=== PATIENT | male | born 1965 | race Caucasian/White ===

== ENCOUNTER 2016-02-15 12:26 | Observation (INO) | payer OTHER, SELFPAY ==
[~2016-02-15] VITALS: Ht 180.3 cm; Wt 175.7 kg
[2016-02-15 12:59] LABS: INR 1.19
[2016-02-15 13:04] LABS: BASO % 0.6 % (0.0-1.0); EOS # 0.2 K/mm3 (0.0-0.50); EOS % 3.9 % (0.0-3.0); LARGE UNSTAINED CELL # 0.1 K/mm3 (0.0-0.4); LARGE UNSTAINED CELL % 2.9 % (0.0-4.0); LYMPH # 1.3 K/mm3 (1.5-4.5); LYMPH % 28.8 % (24.0-44.0); MEAN CORPUSCULAR HGB CONC 35.6 g/dl (32.0-36.5); MEAN CORPUSCULAR VOLUME 89.9 fl (80.0-96.0); MONO # 0.3 K/mm3 (0.0-0.8); NEUTROPHILS # 2.5 K/mm3 (1.8-7.7); NEUTROPHILS % 56.9 % (36.0-66.0); RED CELL DISTRIBUTION WIDTH 13.7 % (11.5-14.5); WHITE BLOOD COUNT 4.4 K/mm3 (4.0-10.0)
[2016-02-15 13:22] LABS: PLATELET COUNT, AUTOMATED 89 k/mm3 (150-450)
[2016-02-15 13:27] LABS: ALBUMIN 2.6 GM/DL (3.2-5.2); ALBUMIN/GLOBULIN RATIO 0.96 (1.00-1.93); ALKALINE PHOSPHATASE 85 U/L (45-117); ALT/SGPT 102 U/L (12-78); ANION GAP 7 MEQ/L (8-16); AST/SGOT 121 U/L (15-37); BILIRUBIN,DIRECT 0.3 MG/DL (0.0-0.2); BILIRUBIN,TOTAL 0.7 MG/DL (0.2-1.0); BLOOD UREA NITROGEN 15 MG/DL (7-18); CALCIUM LEVEL 7.8 MG/DL (8.5-10.1); CARBON DIOXIDE LEVEL 29 MEQ/L (21-32); CHLORIDE LEVEL 107 MEQ/L (98-107); CREATININE FOR GFR 1.28 MG/DL (0.70-1.30); GLOMERULAR FILTRATION RATE > 60.0 (>56); GLUCOSE, FASTING 115 MG/DL (70-105); POTASSIUM SERUM 3.4 MEQ/L (3.5-5.1); SODIUM LEVEL 143 MEQ/L (136-145); TOTAL PROTEIN 5.3 GM/DL (6.4-8.2)
[2016-02-15] MEDS ORDERED: ISOVUE-370 76% 100ML VIAL (Q9967) As Ordered ONE (13:52)
[2016-02-15] MEDS ORDERED: ASPI1TAB PO (14:24)
[2016-02-15] MEDS ORDERED: ATOR40TA PO (14:24)
[2016-02-15] MEDS ORDERED: MOBI15TA PO (14:24)
[2016-02-15] MEDS ORDERED: METF500T4 PO (14:24)
[2016-02-15] MEDS ORDERED: HYDR25TAB PO (14:24)
[2016-02-15] MEDS ORDERED: PANT40TA2 PO (14:24)
[2016-02-15] MEDS ORDERED: GABA300C3 PO (14:24)
[2016-02-15] MEDS ORDERED: RIZA5TAB PO (14:24)
[2016-02-15] MEDS ORDERED: SERO1TAB3 PO (14:24)
[2016-02-15] MEDS ORDERED: TIZA4CAP3 PO (14:24)
[2016-02-15] MEDS ORDERED: LISI-542 PO (14:24)
[2016-02-15] MEDS ORDERED: CITA40TA4 PO (14:24)
--- NOTE | 2016-02-15 14:43 | REP ---
Clinical: Abdominal pain. Technique: Axial contrast enhanced images from the lung bases to the pubic symphysis using 100 ml Isovue 370 intravenous contrast material with coronal and sagittal re-formations. Comparison: None. Findings: Liver, spleen, pancreas, gallbladder, bilateral adrenal glands and kidneys are normal. The enteric system is without obstruction or acute inflammatory process and a normal terminal ileum and appendix are identified in the right lower quadrant. 1 cm fat containing periumbilical hernia noted. Few colonic diverticula noted without acute diverticulitis. Pelvis demonstrates normal bladder and age appropriate prostate/seminal vesicles. No pelvic fluid or ascites. No intra-abdominal or retroperitoneal adenopathy. No free air. Vasculature is normal and without aneurysm or dissection. Musculoskeletal structures demonstrate degenerative changes without focal osseous abnormality. Lung bases clear. Impression: No acute intra-abdominal or pelvic pathology appreciated. Scattered colonic diverticula without acute diverticulitis. 1 cm fat containing periumbilical hernia. Signed by Dayne Paris MD 02/15/2016 02:35 P
[2016-02-15] MEDS ORDERED: tiZANidine 4 MG TAB PO PRN (18:45)
[2016-02-15] MEDS ORDERED: RIZATRIPTAN BENZOATE 10 MG TAB PO PRN (18:45)
[2016-02-15] MEDS ORDERED: ACETAMINOPHEN TAB 650MG DOSE (2X325MG) PO PRN (18:45)
[2016-02-15] MEDS ORDERED: BISACODYL 5 MG TAB PO PRN (18:45)
[2016-02-15 18:55] LABS: MAGNESIUM LEVEL 1.8 MG/DL (1.8-2.4)
--- NOTE | 2016-02-15 20:02 | ECGEPIP ---
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
--- NOTE | 2016-02-15 21:44 | HPE ---
DATE OF ADMISSION: 02/12/2016 HOSPITALIST ATTENDING: Dr. Nabila Garcia. CHIEF COMPLAINT: Dizziness, lightheadedness. HISTORY OF PRESENT ILLNESS: 50-year-old male with history of diabetes, depression, hypercholesterolemia, morbid obesity, hypertension, chronic back pain, left open reduction internal fixation (ORIF) of the ankle, vasectomy presents to the emergency room with two day history of worsening dizziness, lightheadedness. Patient was seen at scheduled primary care appointment where he received steroid injections to his knees for severe osteoarthritis and was found to have systolic pressure of 70, diastolic of 38. Glucose level was 91. Patient was sent emergently to the emergency room, was found to be orthostatic. He had been on chronic hydrochlorothiazide and lisinopril, had been compliant with his medications. He otherwise denies any chest pain, pressure or tightness. He has chronic shortness of breath from asthma. Patient has had recurrent falls times two and the legs felt like it was giving out. He denies any nausea, vomiting, abdominal pain, bright blood red per rectum, black tarry stools, chest pain, pressure, tightness, fever, chills, rhinorrhea. He has chronic back pain which is unchanged. In the emergency room he was found to be orthostatic. Hospitalist service was called for orthostatic hypotension. Electrocardiogram also showed prolonged QT. Telemetry showed no PVCs. PAST MEDICAL HISTORY: 1. Chronic back pain. 2. Depression. 3. Diabetes. 4. Hypertension. 5. Hypercholesterolemia. 6. Morbid obesity. PAST SURGICAL HISTORY: 1. Severe osteoarthritis. 2. Disc bulges. 3. Vasectomy. 4. Left ankle open reduction internal fixation (ORIF). ALLERGIES: No known drug allergies. HOME MEDICATIONS: - gabapentin 300 mg three times a day - [place] 7.5/325 one tablet every 6 hours - Mobic 15 mg daily - tizanidine 4 mg two tablets every 8 hours - Seroquel 25 mg daily - rizatriptan 5 mg as needed - metformin 500 mg daily - hydrochlorothiazide 25 daily - citalopram 40 mg daily - Lipitor 40 mg daily - lisinopril 5 mg daily - Protonix 40 mg daily - aspirin 81 mg daily SOCIAL HISTORY: Patient is applying for disability due to back injury years ago. Previous smoker, quit 31 years ago. Two packs a day for about 4 years. No alcohol use. No recreational drug use. FAMILY HISTORY: Mother age 75 from brain cancer. Father decreased age 76 to myocardial infarction and aneurysm. REVIEW OF SYSTEMS: 12-point system negative except for positive findings on history of present illness. PHYSICAL EXAMINATION: Blood pressure 93/54, pulse 56, respiratory 20, temperature 97.4, 97% pulse oximetry, 178.5 kilos, 5 foot 11 inches tall. GENERAL: Awake, alert, and oriented times three answering questions appropriately. No respiratory distress. Skin is pink, warm, dry. Able to speak in full sentences. No use of respiratory accessory muscles. LUNGS: Clear to auscultation. No wheezing, rales or rhonchi. HEART: S1, S2. Sinus rhythm. ABDOMEN: Obese, soft, non-tender, non-distended. Positive bowel sounds. EXTREMITIES: No cyanosis or clubbing. SKIN: Warm, dry, well-perfused. IMAGING: Electrocardiogram sinus bradycardia. Ventricular rate of 57 with prolonged Qt interval. UT 497, QTc 490, QRS duration of 106. LABORATORY DATA: White count 4.4, hemoglobin 12, hematocrit 35. Platelet count of 89. INR of 1.19. Sodium 142, potassium 3.4, chloride 107, bicarbonate 29, BUN 15, creatinine 1.28, glucose 115. Lactic acid 1.1, calcium 7.8, magnesium1.8. T-bilirubin 0.7, direct bilirubin 0.3. AST 121, ALT 102, troponin less than 0.02. Hepatitis serology pending. ASSESSMENT AND PLAN: 50-year-old male with history of hypertension, diabetes, morbid obesity, chronic disc bulges sees Dr. Spann at the pain clinic, depression, hypercholesterolemia, severe osteoarthritis and disc bulges who presents to the emergency room with complaints of dizziness, lightheadedness found to have orthostatic hypotension and abnormal EKG with prolonged QT. Patient will be admitted to hospitalist service, attending physician, Dr. Nabila Garcia for observation for the following issues: 1. Orthostatic hypotension most likely secondary to his medications. Therefore , we will discontinue patient's hydrochlorothiazide and lisinopril. Patient has received intravenous fluids which appears to have responded well. We will continue normal saline at 100 mL per hour. 2. Chronic back pain. Patient follows with Dr. Spann at [facility] outpatient follow up. No acute injuries. If patient has worsening back pain may consider repeating x-rays in light of recent history of falls. 3. Type 2 diabetes. During the episodes of dizziness and lightheadedness patient's fingersticks were within normal limits. Will continue with his home medications. Sliding scale consistent carbohydrate diet at the hospital. 4. Hyperlipidemia. Continue Lipitor. Encourage weight loss. 5. Depression. Due to prolonged QT interval, patient's Seroquel and citalopram will be discontinued. Repeat 12 lead electrocardiogram in the morning and continue with telemetry. 6. Prolonged QT. Most likely secondary to patient's Seroquel and citalopram therefore these will be discontinued and repeat electrocardiogram in the morning. Continue with telemetry. 7. Thrombocytopenia check heparin induced platelet antibody peripheral blood smear. No active signs of bleeding. Avoid heparin products. Compression stockings for deep vein thrombosis prophylaxis. 8. Electrolyte abnormalities with low potassium most likely secondary to hydrochlorothiazide which we will replete magnesium level. Calcium level is low. We will check for ionized calcium a dose of calcium gluconate. 9. Hyperlipidemia. Continue Lipitor. Check lipid panel in the morning. 10. Abnormal LFTs . monitor for symptoms, if symptomatic , check us and check hepatitis serology. Patient will be assigned to Dr. Nabila Garcia at 10 p.m. on 02/15/2016. He will assume care of this patient at 7 a.m. on 02/16/2016. NICOLASA
--- NOTE | 2016-02-15 22:29 | EDDOCDS ---
Physician Documentation [facility] Name: Jake Butcher Age: 50 yrs Sex: Male : 1965 Arrival Date: 02/15/2016 Time: 12:26 Bed 1 Private MD: Abner Byrd Disposition: 02/15/16 18:10 Hospitalization ordered by Peri Naranjo for Inpatient Admission. Preliminary diagnosis is Hypotension - resolved. - Bed requested for PCU. - Status is Inpatient Admission. kas2 - Condition is Stable. - Problem is new. - Symptoms have improved. Historical: - Allergies: No known drug Allergies; - Home Meds: 1. gabapentin 300 mg Oral cap 1 cap 3 times per day 2. [place] 7.5-325 mg Oral tab 1 tab every 6 hours 3. Mobic 15 mg oral tab 1 tab once daily 4. tizanidine 4 mg oral cap 2 caps every 8 hours 5. Seroquel 25 mg Oral tab 1 tab daily 6. rizatriptan 5 mg oral tab prn 7. metformin 500 mg Oral tr24 1 tab once daily 8. hydrochlorothiazide 25 mg Oral tab 1 tab once daily 9. citalopram 40 mg Oral tab 1 tab once daily 10. Lipitor 40 mg Oral tab 1 tab once daily 11. lisinopril 5 mg Oral tab 1 tab once daily 12. Protonix 40 mg oral TbEC 1 tab once daily 13. aspirin 81 mg Oral tab 1 tab once daily - PMHx: Chronic Back pain; Depression; Diabetes - NIDDM: controlled; Hypercholesterolemia; Hypertension; - PSHx: left ankle ORIF; Vasectomy; - Social history: Smoking status: Patient states former smoker of tobacco. No barriers to communication noted, The patient speaks fluent [place]ese, Speaks appropriately for age. - Family history: Not pertinent. - : The pt / caregiver states he / she is not on anticoagulants. Home medication list is obtained from the patient. - Exposure Risk Screening:: None identified. Vital Signs: 02/14 12:15 BP 135 / 63 (auto/); ck1 12:16 Pulse 91 MON; Pulse Ox 99% ; ck1 12:36 BP 97 / 56; Pulse 56; Resp 20; Temp 97.4; Pulse Ox 96% ; Weight 170.55 kg / 376 lbs; jlf Height 5 ft. 11 in. (180.34 cm); 12:45 BP 93 / 54 (auto/); ck1 12:45 Pulse 57 MON; Pulse Ox 97% ; ck1 13:00 BP 94 / 52 (auto/); ck1 13:00 Pulse 59 MON; Pulse Ox 98% ; ck1 13:15 BP 99 / 61 (auto/); ck1 13:15 Pulse 56 MON; Pulse Ox 96% ; ck1 13:30 BP 104 / 59 (auto/); ck1 13:30 Pulse 56 MON; Pulse Ox 95% ; ck1 13:45 BP 107 / 64 (auto/); ck1 13:45 Pulse 56 MON; Pulse Ox 95% ; ck1 14:00 BP 101 / 51 (auto/); ck1 14:00 Pulse 57 MON; Pulse Ox 93% ; ck1 14:15 BP 99 / 54 (auto/); ck1 14:15 Pulse 58 MON; Pulse Ox 96% ; ck1 14:30 BP 100 / 57 (auto/); ck1 14:30 Pulse 59 MON; Pulse Ox 95% ; ck1 14:45 BP 103 / 55 (auto/); ck1 14:45 Pulse 55 MON; Pulse Ox 95% ; ck1 15:00 BP 105 / 55 (auto/); ck1 15:00 Pulse 55 MON; Pulse Ox 95% ; ck1 15:15 BP 114 / 56 (auto/); ck1 15:15 Pulse 54 MON; Pulse Ox 95% ; ck1 15:30 BP 115 / 59 (auto/); ck1 15:30 Pulse 56 MON; Pulse Ox 94% ; ck1 15:45 BP 118 / 67 (auto/); ck1 15:45 Pulse 56 MON; Pulse Ox 95% ; ck1 16:00 BP 131 / 71 (auto/); ck1 16:00 Pulse 57 MON; Pulse Ox 96% ; ck1 16:15 BP 128 / 68 (auto/); ck1 16:15 Pulse 56 MON; Pulse Ox 96% ; ck1 16:30 BP 140 / 74 (auto/); ck1 16:30 Pulse 57 MON; Pulse Ox 96% ; ck1 16:45 Pulse 57 MON; Pulse Ox 96% ; ck1 16:45 BP 127 / 66 (auto/); ck1 16:48 Resp 18; Temp 95.8(O); ck1 17:00 BP 121 / 63 (auto/); ck1 17:00 Pulse 56 MON; Pulse Ox 96% ; ck1 17:15 BP 133 / 62 (auto/); ck1 17:15 Pulse 57 MON; Pulse Ox 96% ; ck1 17:30 BP 135 / 65 (auto/); ck1 17:30 Pulse 56 MON; Pulse Ox 97% ; ck1 17:45 BP 142 / 74 (auto/); ck1 17:45 Pulse 56 MON; Pulse Ox 96% ; ck1 18:00 BP 135 / 68 (auto/); ck1 18:00 Pulse 57 MON; Pulse Ox 97% ; ck1 18:15 BP 135 / 70 (auto/); ck1 18:15 Pulse 58 MON; Pulse Ox 97% ; ck1 18:30 BP 136 / 76 (auto/); kas2 18:30 Pulse 56 MON; Pulse Ox 97% ; kas2 18:45 BP 124 / 61 (auto/); kas2 18:45 Pulse 58 MON; Pulse Ox 97% ; kas2 19:00 BP 121 / 60 (auto/); kas2 19:00 Pulse 57 MON; Pulse Ox 98% ; kas2 19:15 BP 123 / 59 (auto/); kas2 19:15 Pulse 57 MON; Pulse Ox 98% ; kas2 19:30 BP 127 / 64 (auto/); kas2 19:30 Pulse 58 MON; Pulse Ox 98% ; kas2 19:35 BP 127 / 64; Pulse 57; Resp 18; Temp 98.1(O); Pulse Ox 98% ; Pain 0/10; kas2 19:45 BP 133 / 69 (auto/); kas2 19:45 Pulse 57 MON; Pulse Ox 99% ; kas2 20:00 BP 129 / 61 (auto/); kas2 20:00 Pulse 57 MON; Pulse Ox 99% ; kas2 20:15 BP 137 / 69 (auto/); kas2 20:15 Pulse 60 MON; Pulse Ox 98% ; kas2 20:30 BP 148 / 67 (auto/); kas2 20:30 Pulse 64 MON; Pulse Ox 98% ; kas2 20:45 BP 116 / 57 (auto/); kas2 20:45 Pulse 60 MON; Pulse Ox 99% ; kas2 21:00 BP 127 / 67 (auto/); kas2 21:00 Pulse 59 MON; Pulse Ox 99% ; kas2 21:15 BP 128 / 70 (auto/); kas2 21:15 Pulse 58 MON; Pulse Ox 98% ; kas2 21:30 BP 136 / 72 (auto/); kas2 21:30 Pulse 61 MON; Pulse Ox 98% ; kas2 21:38 BP 18 / ???; Temp 97.9(O); Pain 0/10; kas2 21:45 BP 114 / 57 (auto/); kas2 21:45 Pulse 61 MON; Pulse Ox 97% ; kas2 22:00 BP 129 / 61 (auto/); kas2 22:00 Pulse 63 MON; Pulse Ox 96% ; kas2 12:36 Body Mass Index 52.44 (170.55 kg, 180.34 cm) [facility] MDM: 12:36 Consumer Educator/Pulse Ox/q 15 min VS ordered. sd1 12:36 Accucheck ordered. sd1 12:36 IV Saline Lock ordered. sd1 12:36 Oxygen at 4L/Min NC or Home dosage ordered. sd1 12:36 Rhythm Strip to chart ordered. sd1 12:36 -Blood Culture (Adults Only), peripheral from different site, or from device/port/PICC sd1 etc. if present ordered. 12:36 NS 0.9% 1000 ml IV at bolus once ordered. sd1 12:37 CBC with Diff Ordered. EDMS 12:37 Cardiac Injury Profile Ordered. EDMS 12:37 Liver Profile Ordered. EDMS 12:37 MED Profile Ordered. EDMS 12:37 Thyroid Stimulating Hormone Ordered. EDMS 12:37 Troponin Ordered. EDMS 12:37 Lactic Acid (Ramsay tube on ice) Ordered. EDMS 12:37 -Blood Culture Ordered. EDMS 12:37 PT/INR Ordered. EDMS 12:37 Type & Screen Ordered. EDMS 12:37 ECG WITH READING ER PHYS+CARDIAG ordered. EDMS 12:45 -Blood Culture (Adults Only), peripheral from different site, or from device/port/PICC lbd etc. if present complete. 12:48 BLOOD CULTURES Ordered. EDMS 13:00 Drug Eval Toxicology ED Only Ordered. EDMS 13:03 Fingerstick Blood Sugar Ordered. EDMS 13:07 PT/INR Reviewed. sd1 13:07 Type & Screen Reviewed. sd1 13:07 Fingerstick Blood Sugar Reviewed. sd1 13:19 BED REQUEST+ADM ordered. EDMS 13:46 CBC with Diff Reviewed. sd1 13:46 Liver Profile Reviewed. sd1 13:46 MED Profile Reviewed. sd1 13:46 Cardiac Injury Profile Reviewed. sd1 13:46 Thyroid Stimulating Hormone Reviewed. sd1 13:46 Troponin Reviewed. sd1 13:46 Lactic Acid (Ramsay tube on ice) Reviewed. sd1 13:49 CT ABD & PELVIS: IV Contrast Only Ordered. EDMS 14:25 Type & Screen Reviewed. sd1 15:47 Hepatitis Profile Ordered. EDMS 16:08 Financial registration complete. zo 16:11 [facility] Payment Agreement was scanned into [employer] and attached to record. zo 18:41 Admission / Observation Status ordered. EDMS 18:41 ELECTROCARDIOGRAM ADULT ordered. EDMS 18:41 NO ADDED SALT DIET ordered. EDMS 18:41 CARDIAC MARKER PANEL Ordered. EDMS 18:48 MAGNESIUM LEVEL Ordered. EDMS 18:54 REGULAR+DIET ordered. EDMS 19:32 BASIC METABOLIC PROFILE Ordered. EDMS 19:32 CBC WITH DIFFERENTIAL Ordered. EDMS 19:33 CARDIAC MARKER PANEL Ordered. EDMS 19:33 CARDIAC MARKER PANEL Ordered. EDMS 21:00 HEPARIN INDUCED PLATELET MITCHELL Ordered. EDMS 21:00 PATHOLOGIST REVIEW COMPREHENSI Ordered. EDMS 21:01 IONIZED CALCIUM Ordered. EDMS 21:01 CARDIAC RISK PROFILE Ordered. EDMS Point of Care Testing: Blood Glucose: 13:00 Blood Glucose: 91 mg/dL; ck1 Ranges: Administered Medications: 12:39 Drug: NS 0.9% 1000 ml [sodium chloride 0.9 % intravenous solution] Route: IV; Rate: ck1 bolus; Site: right antecubital; 15:28 Follow up: IV Status: Completed infusion ck1 Signatures: Dispatcher [employer] EDNE Erin Laurent MD MD sd1 Anabella Otero, Crepe [employer] [facility] Nely PHELAN, HOSSEIN Gerardo RN, Connie, RN RN ck1 Oma Fernandes KimRN RN kas2 The chart was reviewed and I authenticate all verbal orders and agree with the evaluation and treatment provided.Corrections: (The following items were deleted from the chart) 13:01 12:37 DRUG EVAL TOXICOLOGY ED ONLY+LAB ordered. EDMS EDMS 18:47 18:41 MAGNESIUM LEVEL ordered. EDMS EDMS Attachments: 16:11 [facility] Payment Agreement zo MTDD
--- NOTE | 2016-02-15 22:29 | EDDOCDS ---
Nurse's Notes [facility] Name: Ramila Butcher Age: 50 yrs Sex: Male : 1965 Arrival Date: 02/15/2016 Time: 12:26 Bed 1 Private MD: Abner Byrd Diagnosis: Hypotension-resolved Presentation: 02/14 12:29 Presenting complaint: EMS states: Weakness for one week, hypotension 73/38. ck1 Suicide/Homicide risk assessment- the patient denies having any suicidal and/or homicidal ideations and does not present with any other emotional, behavioral or mental health complaints. Status: Patient is not a air purifier servicer or dependent. Transition of care: patient was received from a primary care office; Dr. Tolentino. 12:29 Method Of Arrival: Ambulance ck1 12:29 Acuity: BEVERLEY Level 2 ck1 12:39 Adult Sepsis Screening: The patient does not have new or worsening altered mentation. ck1 Patient's respiratory rate is less than 22. Systolic blood pressure is less than or equal to 100 (1 point). Patient has a qSOFA score of 1- Negative Sepsis Screen. Triage Assessment: 12:37 General: Appears in no apparent distress, comfortable, Behavior is appropriate for age, ck1 cooperative. Pain: Location: back Pain currently is 8 out of 10 on a pain scale. Is chronic. HIV screening NA for this visit Offered previously. Neurological: Level of Consciousness is awake, alert, obeys commands, Oriented to person, place, time. Cardiovascular: Chest pain is denied. Respiratory: Respiratory effort is unlabored, Respiratory pattern is regular, symmetrical. GI: No deficits noted. Derm: Skin is intact, is healthy with good turgor, Skin is pink, warm & dry. Musculoskeletal: Circulation, motion, and sensation intact Range of motion intact in all extremities. Historical: - Allergies: No known drug Allergies; - Home Meds: 1. gabapentin 300 mg Oral cap 1 cap 3 times per day 2. [place] 7.5-325 mg Oral tab 1 tab every 6 hours 3. Mobic 15 mg oral tab 1 tab once daily 4. tizanidine 4 mg oral cap 2 caps every 8 hours 5. Seroquel 25 mg Oral tab 1 tab daily 6. rizatriptan 5 mg oral tab prn 7. metformin 500 mg Oral tr24 1 tab once daily 8. hydrochlorothiazide 25 mg Oral tab 1 tab once daily 9. citalopram 40 mg Oral tab 1 tab once daily 10. Lipitor 40 mg Oral tab 1 tab once daily 11. lisinopril 5 mg Oral tab 1 tab once daily 12. Protonix 40 mg oral TbEC 1 tab once daily 13. aspirin 81 mg Oral tab 1 tab once daily - PMHx: Chronic Back pain; Depression; Diabetes - NIDDM: controlled; Hypercholesterolemia; Hypertension; - PSHx: left ankle ORIF; Vasectomy; - Social history: Smoking status: Patient states former smoker of tobacco. No barriers to communication noted, The patient speaks fluent Yoruba, Speaks appropriately for age. - Family history: Not pertinent. - : The pt / caregiver states he / she is not on anticoagulants. Home medication list is obtained from the patient. - Exposure Risk Screening:: None identified. Screenin:36 Screening information is obtained from the patient. Fall risk: At risk due to weakness. ck1 The following interventions are performed due to a positive Fall Risk Screen: Fall Risk is added to Special Handling on the patient Summary Screen. A Fall Risk Bracelet was applied to the patient. Side Rails are placed in the up position. A Call Landry is given with instruction to call for help when getting out of bed. Fall Alert bracelet is placed on the patient. Assistance ADL's: requires no assistance with activities of daily living. Abuse/DV Screen: The patient / caregiver reports he/she is: not in a situation that causes fear, pain or injury. Nutritional screening: No deficits noted. Advance Directives: Currently, there is no health care proxy. home support is adequate. Assessment: 12:37 General: see triage note. ck1 13:26 General: Appears in no apparent distress, Behavior is appropriate for age, cooperative. ck1 Pain: Denies pain. Pain: Location: back Pain currently is 8 out of 10 on a pain scale. Is chronic. Neurological: Level of Consciousness is awake, alert, obeys commands, Oriented to person, place, time. Cardiovascular: Rhythm is sinus bradycardia. Respiratory: Airway is patent Respiratory effort is unlabored, Respiratory pattern is regular, symmetrical. Derm: Skin is intact, is healthy with good turgor, Skin is pink, warm & dry. Musculoskeletal: Circulation, motion, and sensation intact Range of motion intact in all extremities. 14:27 General: Appears in no apparent distress, comfortable, Behavior is appropriate for age, ck1 cooperative. Neurological: Level of Consciousness is awake, alert, obeys commands, Oriented to person, place, time. Cardiovascular: Rhythm is sinus rhythm. Respiratory: Respiratory effort is unlabored, Respiratory pattern is regular, symmetrical. GI: No deficits noted. Derm: Skin is intact, is healthy with good turgor, Skin is pink, warm & dry. 15:27 General: Appears in no apparent distress, comfortable, Behavior is appropriate for age, ck1 cooperative. Pain: Denies pain. Neurological: Level of Consciousness is awake, alert, Oriented to person, place, time. Cardiovascular: Rhythm is sinus bradycardia. Respiratory: Respiratory effort is unlabored, Respiratory pattern is regular, symmetrical. GI: No deficits noted. Derm: Skin is intact, is healthy with good turgor, Skin is pink, warm & dry. 16:16 Adult Sepsis Screening: The patient does not have new or worsening altered mentation. ck1 Patient's respiratory rate is less than 22. Systolic blood pressure is greater than 100. Patient has a qSOFA score of 0- Negative Sepsis Screen. 16:44 Reassessment: Patient appears in no apparent distress at this time. Patient denies pain ck1 at this time. resting quietly on stretcher with eyes closed. Call light in reach, will continue to monitor patient. 17:38 General: Appears in no apparent distress, comfortable, Behavior is appropriate for age, ck1 cooperative. Pain: Location: back Is chronic. Neurological: Level of Consciousness is awake, alert, obeys commands, Oriented to person, place, time. Cardiovascular: Rhythm is sinus rhythm. Respiratory: Respiratory effort is unlabored, Respiratory pattern is regular, symmetrical. GI: No deficits noted. Derm: Skin is intact, is healthy with good turgor, Skin is pink, warm & dry. Musculoskeletal: Circulation, motion, and sensation intact Range of motion intact in all extremities. 18:21 Reassessment: Patient appears in no apparent distress at this time. General: Appears to ck1 be sleeping. Neurological: No deficits noted. Cardiovascular: Rhythm is sinus rhythm. Respiratory: Respiratory effort is unlabored, Respiratory pattern is regular, symmetrical. GI: No deficits noted. Derm: Skin is intact, is healthy with good turgor, Skin is pink, warm & dry. 19:02 General: Verbal report given by Chanda Casillas RN. Assumed care of patient at this time.. kas2 19:33 General: Appears in no apparent distress, comfortable, to be sleeping. Behavior is kas2 appropriate for age, cooperative. Pain: Denies pain. Neurological: No deficits noted. Level of Consciousness is awake, alert, obeys commands, Oriented to person, place, time. Cardiovascular: Rhythm is sinus bradycardia No ectopy. Respiratory: Airway is patent Respiratory effort is even, unlabored, Respiratory pattern is regular, symmetrical, Breath sounds are clear bilaterally. GI: No deficits noted. Derm: Skin is intact, is healthy with good turgor, Skin is dry, Skin is pink, warm & dry. Skin temperature is warm. Musculoskeletal: Circulation, motion, and sensation intact Range of motion intact in all extremities. 20:26 General: Patient up to bedside to urinate with assist of RN. Resettled in bed. Urine kas2 sent to lab. Denies pain or discomfort at this time. at bedside. Waiting to go up to floor. Will continue to monitor.. 21:36 General: Patient continues to rest in bed with family at bedside. VSS. Airway patent. kas2 Respiratory pattern even and unlabored. Denies pain or discomfort at this time. No apparent distress. Will continue to monitor.. 22:12 General: Appears in no apparent distress, comfortable, Behavior is appropriate for age, kas2 cooperative. Pain: Denies pain. Neurological: Level of Consciousness is awake, alert, obeys commands, Oriented to person, place, time. Cardiovascular: Rhythm is sinus rhythm No ectopy. Respiratory: Airway is patent Respiratory effort is even, unlabored, Respiratory pattern is regular, symmetrical. Derm: Skin is intact, is healthy with good turgor, Skin is dry, Skin is pink, warm & dry. Skin temperature is warm. Vital Signs: 12:15 BP 135 / 63 (auto/); ck1 12:16 Pulse 91 MON; Pulse Ox 99% ; ck1 12:36 BP 97 / 56; Pulse 56; Resp 20; Temp 97.4; Pulse Ox 96% ; Weight 170.55 kg; Height 5 ft. jlf 11 in. (180.34 cm); 12:45 BP 93 / 54 (auto/); ck1 12:45 Pulse 57 MON; Pulse Ox 97% ; ck1 13:00 BP 94 / 52 (auto/); ck1 13:00 Pulse 59 MON; Pulse Ox 98% ; ck1 13:15 BP 99 / 61 (auto/); ck1 13:15 Pulse 56 MON; Pulse Ox 96% ; ck1 13:30 BP 104 / 59 (auto/); ck1 13:30 Pulse 56 MON; Pulse Ox 95% ; ck1 13:45 BP 107 / 64 (auto/); ck1 13:45 Pulse 56 MON; Pulse Ox 95% ; ck1 14:00 BP 101 / 51 (auto/); ck1 14:00 Pulse 57 MON; Pulse Ox 93% ; ck1 14:15 BP 99 / 54 (auto/); ck1 14:15 Pulse 58 MON; Pulse Ox 96% ; ck1 14:30 BP 100 / 57 (auto/); ck1 14:30 Pulse 59 MON; Pulse Ox 95% ; ck1 14:45 BP 103 / 55 (auto/); ck1 14:45 Pulse 55 MON; Pulse Ox 95% ; ck1 15:00 BP 105 / 55 (auto/); ck1 15:00 Pulse 55 MON; Pulse Ox 95% ; ck1 15:15 BP 114 / 56 (auto/); ck1 15:15 Pulse 54 MON; Pulse Ox 95% ; ck1 15:30 BP 115 / 59 (auto/); ck1 15:30 Pulse 56 MON; Pulse Ox 94% ; ck1 15:45 BP 118 / 67 (auto/); ck1 15:45 Pulse 56 MON; Pulse Ox 95% ; ck1 16:00 BP 131 / 71 (auto/); ck1 16:00 Pulse 57 MON; Pulse Ox 96% ; ck1 16:15 BP 128 / 68 (auto/); ck1 16:15 Pulse 56 MON; Pulse Ox 96% ; ck1 16:30 BP 140 / 74 (auto/); ck1 16:30 Pulse 57 MON; Pulse Ox 96% ; ck1 16:45 Pulse 57 MON; Pulse Ox 96% ; ck1 16:45 BP 127 / 66 (auto/); ck1 16:48 Resp 18; Temp 95.8(O); ck1 17:00 BP 121 / 63 (auto/); ck1 17:00 Pulse 56 MON; Pulse Ox 96% ; ck1 17:15 BP 133 / 62 (auto/); ck1 17:15 Pulse 57 MON; Pulse Ox 96% ; ck1 17:30 BP 135 / 65 (auto/); ck1 17:30 Pulse 56 MON; Pulse Ox 97% ; ck1 17:45 BP 142 / 74 (auto/); ck1 17:45 Pulse 56 MON; Pulse Ox 96% ; ck1 18:00 BP 135 / 68 (auto/); ck1 18:00 Pulse 57 MON; Pulse Ox 97% ; ck1 18:15 BP 135 / 70 (auto/); ck1 18:15 Pulse 58 MON; Pulse Ox 97% ; ck1 18:30 BP 136 / 76 (auto/); kas2 18:30 Pulse 56 MON; Pulse Ox 97% ; kas2 18:45 BP 124 / 61 (auto/); kas2 18:45 Pulse 58 MON; Pulse Ox 97% ; kas2 19:00 BP 121 / 60 (auto/); kas2 19:00 Pulse 57 MON; Pulse Ox 98% ; kas2 19:15 BP 123 / 59 (auto/); kas2 19:15 Pulse 57 MON; Pulse Ox 98% ; kas2 19:30 BP 127 / 64 (auto/); kas2 19:30 Pulse 58 MON; Pulse Ox 98% ; kas2 19:35 BP 127 / 64; Pulse 57; Resp 18; Temp 98.1(O); Pulse Ox 98% ; Pain 0/10; kas2 19:45 BP 133 / 69 (auto/); kas2 19:45 Pulse 57 MON; Pulse Ox 99% ; kas2 20:00 BP 129 / 61 (auto/); kas2 20:00 Pulse 57 MON; Pulse Ox 99% ; kas2 20:15 BP 137 / 69 (auto/); kas2 20:15 Pulse 60 MON; Pulse Ox 98% ; kas2 20:30 BP 148 / 67 (auto/); kas2 20:30 Pulse 64 MON; Pulse Ox 98% ; kas2 20:45 BP 116 / 57 (auto/); kas2 20:45 Pulse 60 MON; Pulse Ox 99% ; kas2 21:00 BP 127 / 67 (auto/); kas2 21:00 Pulse 59 MON; Pulse Ox 99% ; kas2 21:15 BP 128 / 70 (auto/); kas2 21:15 Pulse 58 MON; Pulse Ox 98% ; kas2 21:30 BP 136 / 72 (auto/); kas2 21:30 Pulse 61 MON; Pulse Ox 98% ; kas2 21:38 BP 18 / ???; Temp 97.9(O); Pain 0/10; kas2 21:45 BP 114 / 57 (auto/); kas2 21:45 Pulse 61 MON; Pulse Ox 97% ; kas2 22:00 BP 129 / 61 (auto/); kas2 22:00 Pulse 63 MON; Pulse Ox 96% ; kas2 12:36 Body Mass Index 52.44 (170.55 kg, 180.34 cm) jl Vitals: 12:39 Log In Time N/A - ambulance arrival. ck1 ED Course: 12:27 Patient visited by Anabella Otero, Flavor Tank Tender. lbd 12:27 Abner Byrd DO is Private Physician. lbd 12:27 Patient moved to Waiting lbd 12:28 Chanda Chirinos,RN is Primary Nurse. po 12:28 Patient moved to 1 po 12:29 Erin Laurent MD is Attending Physician. sd1 12:29 Patient visited by Erin Laurent MD. sd1 12:31 Triage Initiated ck1 12:36 Patient visited by Mile Chauhan PCA. jlf 12:36 Inserted saline lock: 18 gauge in left antecubital area and blood collected. The ck1 patient tolerated the procedure well. by Galileo Tavares RN. 12:37 The patient / caregiver is instructed regarding the plan of care and ED course. ck1 12:39 Type & Screen Sent. ck1 12:39 PT/INR Sent. ck1 12:39 -Blood Culture Sent. ck1 12:39 Lactic Acid (Ramsay tube on ice) Sent. ck1 12:39 CBC with Diff Sent. ck1 12:39 Cardiac Injury Profile Sent. ck1 12:39 Liver Profile Sent. ck1 12:39 MED Profile Sent. ck1 12:40 Thyroid Stimulating Hormone Sent. ck1 12:40 Troponin Sent. ck1 12:43 Patient visited by Mile Chauhan PCA. jlf 12:43 EKG done. (by ED staff). Reviewed by Erin Laurent MD. jlf 12:50 BLOOD CULTURES Sent. ck1 13:08 Patient visited by Chanda Chirinos,RN. ck1 13:40 Patient visited by Mile Chauhan PCA. jlf 14:14 Patient visited by Mile Chauhan PCA. jlf 14:23 No procedures done that require assistance. ck1 14:27 Patient visited by Chanda Chirinos RN. ck1 14:27 PO fluids given. ck1 15:12 CT ABD & PELVIS: IV Contrast Only Returned. EDMS 15:19 Patient visited by Chanda Chirinos RN. ck1 15:47 Patient visited by Chanda Chirinos RN. ck1 16:11 [facility] Payment Agreement was scanned into [employer] and attached to record. zo 16:16 Patient visited by Chanda Chirinos RN. ck1 16:44 Patient visited by Chanda Chirinos RN. ck1 17:17 Patient visited by Mile Chauhan PCA. jlf 17:38 Patient visited by Chanda Chirinos RN. ck1 18:08 Peri Naranjo is Hospitalizing Provider. sd1 18:50 Primary Nurse role handed off by Chanda Chirinos RN ck1 19:01 Shreya Rey RN is Primary Nurse. kas2 19:03 Patient visited by Shreya Rey RN. kas2 19:39 Patient visited by Shreya Rey RN. kas2 20:25 EKG-ADULT Returned. EDMS 20:27 Patient visited by Shreya Rey RN. kas2 21:39 Patient visited by Shreya Rey RN. kas2 22:28 Patient visited by Shreya Rey RN. kas2 Administered Medications: 12:39 Drug: NS 0.9% 1000 ml [sodium chloride 0.9 % intravenous solution] Route: IV; Rate: ck1 bolus; Site: right antecubital; 15:28 Follow up: IV Status: Completed infusion ck1 Point of Care Testing: Blood Glucose: 13:00 Blood Glucose: 91 mg/dL; ck1 Ranges: Order Results: Lab Order: CBC with Diff; SPEC'M 02/15/16 12:38 Test: WHITE BLOOD COUNT; Value: 4.4; Range: 4.0-10.0; Units: K/mm3; Status: F Test: RED BLOOD COUNT; Value: 3.99; Range: 4.30-6.10; Abnormal: Below low normal; Units: M/mm3; Status: F Test: HEMOGLOBIN; Value: 12.8; Range: 14.0-18.0; Abnormal: Below low normal; Units: g/dl; Status: F Test: HEMATOCRIT; Value: 35.9; Range: 42.0-52.0; Abnormal: Below low normal; Units: %; Status: F Test: MEAN CORPUSCULAR VOLUME; Value: 89.9; Range: 80.0-96.0; Units: fl; Status: F Test: MEAN CORPUSCULAR HEMOGLOBIN; Value: 32.0; Range: 27.0-33.0; Units: pg; Status: F Test: MEAN CORPUSCULAR HGB CONC; Value: 35.6; Range: 32.0-36.5; Units: g/dl; Status: F Test: RED CELL DISTRIBUTION WIDTH; Value: 13.7; Range: 11.5-14.5; Units: %; Status: F Test: PLATELET COUNT, AUTOMATED; Value: 89; Range: 150-450; Abnormal: Below low normal; Units: k/mm3; Status: F Test: NEUTROPHILS %; Value: 56.9; Range: 36.0-66.0; Units: %; Status: F Test: LYMPH %; Value: 28.8; Range: 24.0-44.0; Units: %; Status: F Test: MONO %; Value: 7.0; Range: 0.0-5.0; Abnormal: Above high normal; Units: %; Status: F Test: EOS %; Value: 3.9; Range: 0.0-3.0; Abnormal: Above high normal; Units: %; Status: F Test: BASO %; Value: 0.6; Range: 0.0-1.0; Units: %; Status: F Test: LARGE UNSTAINED CELL %; Value: 2.9; Range: 0.0-4.0; Units: %; Status: F Test: NEUTROPHILS #; Value: 2.5; Range: 1.8-7.7; Units: K/mm3; Status: F Test: LYMPH #; Value: 1.3; Range: 1.5-4.5; Abnormal: Below low normal; Units: K/mm3; Status: F Test: MONO #; Value: 0.3; Range: 0.0-0.8; Units: K/mm3; Status: F Test: EOS #; Value: 0.2; Range: 0.0-0.50; Units: K/mm3; Status: F Test: BASO #; Value: 0.0; Range: 0.0-0.2; Units: K/mm3; Status: F Test: LARGE UNSTAINED CELL #; Value: 0.1; Range: 0.0-0.4; Units: K/mm3; Status: F Lab Order: Cardiac Injury Profile; SPEC'M 02/15/16 12:38 Test: CPK CREATINE PHOSPHOKINASE; Value: 70; Range: 39-308; Units: U/L; Status: F Test: CK-MB VALUE MASS; Value: 1.0; Range: 0.0-3.6; Units: NG/ML; Status: F Test: MB/CK RELATIVE INDEX; Value: 1.42; Range: < OR =4; Status: F Test Note: ; DIAGNOSIS CRITERIA MMB ng/ml Relative Index (RI) NON-AMI < or = 5 N/A RAMSAY ZONE > 5 < or = 4 AMI > 5 > 4 Lab Order: Liver Profile; SPEC'M 02/15/16 12:38 Test: AST/SGOT; Value: 121; Range: 15-37; Abnormal: Above high normal; Units: U/L; Status: F Test: ALT/SGPT; Value: 102; Range: 12-78; Abnormal: Above high normal; Units: U/L; Status: F Test: ALKALINE PHOSPHATASE; Value: 85; Range: 45-117; Units: U/L; Status: F Test: BILIRUBIN,TOTAL; Value: 0.7; Range: 0.2-1.0; Units: MG/DL; Status: F Test: BILIRUBIN,DIRECT; Value: 0.3; Range: 0.0-0.2; Abnormal: Above high normal; Units: MG/DL; Status: F Test: TOTAL PROTEIN; Value: 5.3; Range: 6.4-8.2; Abnormal: Below low normal; Units: GM/DL; Status: F Test: ALBUMIN; Value: 2.6; Range: 3.2-5.2; Abnormal: Below low normal; Units: GM/DL; Status: F Test: ALBUMIN/GLOBULIN RATIO; Value: 0.96; Range: 1.00-1.93; Abnormal: Below low normal; Status: F Lab Order: MED Profile; SPEC02/15/16 12:38 Test: GLUCOSE, FASTING; Value: 115; Range: 70-105; Abnormal: Above high normal; Units: MG/DL; Status: F Test: BLOOD UREA NITROGEN; Value: 15; Range: 7-18; Units: MG/DL; Status: F Test: CREATININE FOR GFR; Value: 1.28; Range: 0.70-1.30; Units: MG/DL; Status: F Test: GLOMERULAR FILTRATION RATE; Value: > 60.0; Range: >56; Status: F Test: SODIUM LEVEL; Value: 143; Range: 136-145; Units: MEQ/L; Status: F Test: POTASSIUM SERUM; Value: 3.4; Range: 3.5-5.1; Abnormal: Below low normal; Units: MEQ/L; Status: F Test: CHLORIDE LEVEL; Value: 107; Range: 98-107; Units: MEQ/L; Status: F Test: CARBON DIOXIDE LEVEL; Value: 29; Range: 21-32; Units: MEQ/L; Status: F Test: ANION GAP; Value: 7; Range: 8-16; Abnormal: Below low normal; Units: MEQ/L; Status: F Test: CALCIUM LEVEL; Value: 7.8; Range: 8.5-10.1; Abnormal: Below low normal; Units: MG/DL; Status: F Test Note: ; Units are mL/min/1.73 m2 Chronic Kidney Disease Staging per NKF: Stage I & II GFR >=60 Normal to Mildly Decreased Stage III GFR 30-59 Moderately Decreased Stage IV GFR 15-29 Severely Decreased Stage V GFR <15 Very Little GFR Left ESRD GFR <15 on MAIL CLERK Lab Order: Thyroid Stimulating Hormone; SPEC02/15/16 12:38 Test: THYROID STIMULATING HORMONE; Value: 2.140; Range: 0.358-3.740; Units: uIU/ML; Status: F Lab Order: Troponin; SPEC02/15/16 12:38 Test: TROPONIN I; Value: < 0.02; Range: < 0.10; Units: NG/ML; Status: F Test Note: ; Troponin I Reference Interval for [employer] LOCI: 99th Percentile= 0.00-0.045 ng/ml Risk Stratification: <= 0.10 ng/ml Decreased Risk for Adverse Clinical Events. 0.10-1.50 ng/ml Increased Risk for Adverse Clinical Events. Evaluation of additional criterion and/or repeat testing in 2-6 hours is suggested to rule out myocardial damage. >= 1.50 ng/ml Indicative of Myocardial Injury. Lab Order: Lactic Acid (Ramsay tube on ice); [facility]02/15/16 12:38 Test: LACTIC ACID LEVEL, LACTATE; Value: 1.1; Range: 0.4-2.0; Units: MMOL/L; Status: F Lab Order: PT/INR; 02/15/16 12:38 Test: PROTHROMBIN TIME; Value: 15.2; Range: 12.3-14.5; Abnormal: Above high normal; Units: SECONDS; Status: F Test: INR; Value: 1.19; Status: F Test Note: ; THERAPUTIC HUMAN INR VALUES INDICATIONS NORMAL RANGES PROPHYLAXIS/TREATMENT OF: VENOUS THROMBOSIS 2.0-3.0 PULMONARY EMBOLISM 2.0-3.0 PREVENTION OF SYSTEMIC EMBOLISM FROM: TISSUE HEART VALVES 2.0-3.0 ACUTE MYOCARDIAL INFARCTION 2.0-3.0 VALVULAR HEART DISEASE 2.0-3.0 ATRIAL FIBRILLATION 2.0-3.0 MECHANICAL VALVES(HIGH RISK) 2.5-3.5 RECURRENT MYOCARDIAL INFARCTION 2.5-3.5 Lab Order: Type & Screen; [facility]02/15/16 12:38 Test: BLOOD TYPE; Value: A NEG; Status: F Test: AB SCREEN (INDIRECT JORDY)GEL; Value: NEGATIVE; Status: F Lab Order: Fingerstick Blood Sugar; [facility]02/15/16 12:54 Test: BEDSIDE GLUCOSE; Value: 91; Range: 70-105; Units: MG/DL; Status: F Lab Order: MAGNESIUM LEVEL; [facility]02/15/16 12:38 Test: MAGNESIUM LEVEL; Value: 1.8; Range: 1.8-2.4; Units: MG/DL; Status: F Radiology Order: EKG-ADULT Test: EKG-ADULT REASON FOR EXAMINATION: weakness; Stationary ECG Study; [facility] - ED; ; Test Date: 2016-02-15; Pat Name: RAMILA BUTCHER Department:; Room: -; Gender: M Seo Marketing 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: elise; : 1965 Requested By: Erin Laurent; Order Number: [id number] Reading MD: Erin Laurent; Measurements; Intervals [place]; Rate: 57 P: 15; MD: 143 QRS: 31; QRSD: 106 T: 29; QT: 497; QTc: 487; Interpretive Statements; SINUS BRADYCARDIA; PROLONGED QT INTERVAL; DECREASED RATE 01/07/16; Electronically Signed On 02-15-2016 20:02:33 EST by Erin Laurent; Radiology Order: CT ABD & PELVIS: IV Contrast Only Test: CT ABD & PELVIS: IV Contrast Only REASON FOR EXAMINATION: Abdomen Pain; Clinical: Abdominal pain.; ; Technique: Axial contrast enhanced images from the lung bases to the pubic; symphysis using 100 ml Isovue 370 intravenous contrast material with coronal and; sagittal re-formations.; ; Comparison: None.; ; Findings:; Liver, spleen, pancreas, gallbladder, bilateral adrenal glands and kidneys are; normal. The enteric system is without obstruction or acute inflammatory process; and a normal terminal ileum and appendix are identified in the right lower; quadrant. 1 cm fat containing periumbilical hernia noted. Few colonic; diverticula noted without acute diverticulitis. Pelvis demonstrates normal; bladder and age appropriate prostate/seminal vesicles. No pelvic fluid or; ascites. No intra-abdominal or retroperitoneal adenopathy. No free air.; Vasculature is normal and without aneurysm or dissection. Musculoskeletal; structures demonstrate degenerative changes without focal osseous abnormality.; Lung bases clear.; ; Impression:; No acute intra-abdominal or pelvic pathology appreciated.; Scattered colonic diverticula without acute diverticulitis.; 1 cm fat containing periumbilical hernia.; ; ; Signed by; Dayne Paris MD 02/15/2016 02:35 P; Outcome: 17:39 CT Study completed. Property :Personal belongings accompany Pt. ck1 18:10 Decision to Hospitalize by Provider. sd1 19:35 Discharge Assessment: patient administered narcotics - no. kas2 22:13 The following High Risk Discharge criteria are identified: None. Admitted to PCU kas2 accompanied by nurse, accompanied by tech, via stretcher, on monitor, with chart. Condition: good Condition: stable Condition: improved. 22:28 Patient left the ED. kas2 Signatures: Dispatcher [employer] EDMS Erin Laurent MD MD sd1 Anabella Otero, Flavor Tank Tender Unit lbd Angelito Ritchie RN RN po Kim-Ashcraft, Connie, RN RN ck1 Oma Fernandes Jordain, JORDYN SPRAY DRIER OPERATOR Shreya Hester RN RN [facility] Corrections: (The following items were deleted from the chart) 13:01 12:51 DRUG EVAL TOXICOLOGY ED ONLY+LAB sent. ck1 EDIL 16:45 16:44 Reassessment: Patient appears in no apparent distress at this time. Patient ck1 denies pain at this time. ck1 MTDD
[2016-02-15] MEDS ORDERED: POTASSIUM CHLORIDE 10 MEQ SR TABLET PO ONE (22:30)
[2016-02-15 22:39] VITALS: BP 118/73
[2016-02-15 22:46] LABS: AMPHETAMINES LEVEL URINE NEGATIVE (NEGATIVE); BENZODIAZEPINES URINE NEGATIVE (NEGATIVE); COCAINE METABOLITE URINE NEGATIVE (NEGATIVE); CONTROL LINE INT CTR LINE PRESENT; METHADONE URINE NEGATIVE (NEGATIVE); OPIATES URINE NEGATIVE (NEGATIVE); TRICYCLIC ANTIDEPRESS URINE NEGATIVE (NEGATIVE)
[2016-02-15] MEDS ORDERED: MAG SULF 1GM/100ML (MAG RUN) 1 GM in APPROPRIATE DILUENT 1 EA IV ONE (23:00)
[2016-02-15] MEDS: NS 1,000 ML IV SCH (23:15)
[2016-02-15] MEDS: GABAPENTIN 300 MG CAP PO SCH (23:16)
[2016-02-16] VITALS (7 sets, daily range): BP systolic 132–162; BP diastolic 64–96
[2016-02-16] MEDS ORDERED: CALCIUM GLUCONATE 1,000 MG in D5W MINI-BAG PLUS 100 ML IV ONE ×2
[2016-02-16 06:02] LABS: BASO % 0.2 % (0.0-1.0); EOS # 0.2 K/mm3 (0.0-0.50); EOS % 3.5 % (0.0-3.0); LARGE UNSTAINED CELL # 0.1 K/mm3 (0.0-0.4); LARGE UNSTAINED CELL % 1.7 % (0.0-4.0); LYMPH # 1.1 K/mm3 (1.5-4.5); LYMPH % 22.7 % (24.0-44.0); MEAN CORPUSCULAR VOLUME 88.6 fl (80.0-96.0); MONO # 0.3 K/mm3 (0.0-0.8); MONO % 5.6 % (0.0-5.0); NEUTROPHILS # 3.3 K/mm3 (1.8-7.7); NEUTROPHILS % 66.3 % (36.0-66.0); RED CELL DISTRIBUTION WIDTH 13.7 % (11.5-14.5)
[2016-02-16 06:04] LABS: PLATELET COUNT, AUTOMATED 95 k/mm3 (150-450)
[2016-02-16 06:16] LABS: ANION GAP 10 MEQ/L (8-16); BLOOD UREA NITROGEN 15 MG/DL (7-18); CALCIUM LEVEL 8.6 MG/DL (8.5-10.1); CARBON DIOXIDE LEVEL 27 MEQ/L (21-32); CHLORIDE LEVEL 109 MEQ/L (98-107); CREATININE FOR GFR 1.03 MG/DL (0.70-1.30); GLOMERULAR FILTRATION RATE > 60.0 (>56); GLUCOSE, FASTING 84 MG/DL (70-105); POTASSIUM SERUM 3.7 MEQ/L (3.5-5.1); SODIUM LEVEL 146 MEQ/L (136-145)
[2016-02-16 06:25] LABS: REASON FOR REVIEW COMPREHENSIVE REVIEW
[2016-02-16 06:51] LABS: ALBUMIN 3.2 GM/DL (3.2-5.2); ALBUMIN/GLOBULIN RATIO 1.14 (1.00-1.93); ALKALINE PHOSPHATASE 108 U/L (45-117); ALT/SGPT 125 U/L (12-78); AST/SGOT 140 U/L (15-37); BILIRUBIN,DIRECT 0.4 MG/DL (0.0-0.2)
[2016-02-16 07:07] LABS: BILIRUBIN,TOTAL 1.1 MG/DL (0.2-1.0)
[2016-02-16 07:21] LABS: IONIZED CALCIUM 4.6 MG/DL (4.5-5.3)
[2016-02-16 07:37] LABS: ERYTHROCYTE SEDIMENTATION RATE 11 mm/hr (0-20)
[2016-02-16] MEDS: metFORMIN XR 500MG TAB *GLUCOPHAGE XR PO SCH (08:30)
[2016-02-16] MEDS: ASPIRIN 81 MG ENTERIC TAB PO SCH (08:31)
[2016-02-16] MEDS: GABAPENTIN 300 MG CAP PO SCH ×3 (08:31→21:42)
[2016-02-16] MEDS: PANTOPRAZOLE 40MG TAB (PROTONIX) PO SCH (08:31)
[2016-02-16] MEDS: NS 1,000 ML IV SCH (08:37)
[2016-02-16] MEDS ORDERED: hydroCHLOROthiazide 25 MG TAB PO SCH (09:00)
[2016-02-16] MEDS ORDERED: ATORVASTATIN 20 MG TAB PO SCH (09:00)
[2016-02-16] MEDS ORDERED: CitaloPRAM (CeleXA) 20 MG TAB PO SCH (09:00)
[2016-02-16] MEDS ORDERED: LISINOPRIL 5 MG TAB PO SCH (09:00)
[2016-02-16] MEDS ORDERED: ENOXAPARIN 40 MG/0.4 ML SYRINGE (J1650) SC SCH (09:00)
--- NOTE | 2016-02-16 10:49 | ECGEPIP ---
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
--- NOTE | 2016-02-16 14:02 | IPN ---
DATE: 02/16/2016 SUBJECTIVE: Today, the patient tells me that he is feeling significantly better. He is not having any further symptoms of vertigo, lightheadedness, dizziness. He denies any chest pain, shortness of breath, or any further abdominal pain. OBJECTIVE: VITAL SIGNS: Temperature 98.1, pulse 74, respiratory rate 20, blood pressure 146/70, oxygen saturation 97% on room air. The patient's orthostatics were checked this morning by the nursing staff and the patient is not orthostatic at all upon my review of them. GENERAL: He is a morbidly obese, man lying in bed at a 30 degree angle and watching television. He is in no acute distress. HEENT: Cranial nerves II through XII are grossly intact. He has moist mucous membranes. Difficult to assess for any elevation of central venous pressure secondary to body habitus. CARDIOVASCULAR EXAM: S1, S2. Regular. RESPIRATORY EXAM: Clear. ABDOMINAL EXAM: Grossly obese. Bowel sounds present. The abdomen is soft. No tenderness. EXTREMITIES: No clubbing, cyanosis or edema. LABORATORY STUDIES: WBC 5.0, hemoglobin 13.8, hematocrit 39.4, platelet count is 95, ESR 11. Chemistry panel: Sodium 146, potassium 3.7, chloride 109, bicarbonate 27, BUN 15, creatinine 1.0. AST is slightly elevated at 140, ALT at 125. The patient has a lipid profile, which notes an elevated LDL. He has a TSH within normal limits. Urine toxicology positive for cannabis. Heparin induced thrombocytopenia (HIT) antibody is pending. Hepatitis panel is negative. Blood cultures are negative after 24 hours. Peripheral smear reveals chronic thrombocytopenia with mild anemia. CT of the abdomen and pelvis revealed 1 cm area containing periumbilical hernia, no acute intraabdominal or pelvic pathology. EKG revealed a QTC of 421, improved from previous days. ASSESSMENT AND PLAN: This is a 50-year-old man who presented with orthostatic hypotension and a prolonged QT. 1. Orthostatic hypotension, likely secondary to over medication with antihypertensives. At the present time, hydrochlorothiazide and Lisinopril are currently on hold and he had been receiving normal saline. He has had approximately 3 liters worth. At this time, we will discontinue the IV fluid as he is tolerating orally quite well. He is no longer orthostatic and his symptoms have completely resolved. We will monitor his blood pressure. Should he become hypertensive overnight, would consider restarting his hydrochlorothiazide first. 2. Prolonged QT. The patient's Seroquel and citalopram were discontinued. His QT is reduced today. I will restart his citalopram tomorrow morning and check an EKG tomorrow morning prior to restarting it as well. He will require outpatient followup for this. I would recommend holding off on Seroquel at this time. 3. Chronic back pain, stable. The patient follows with the pain clinic. 4. Type 2 diabetes. The patient is continued on metformin at this time. 5. Dyslipidemia. The patient's Lipitor is currently on hold as he has some liver function test abnormalities. His LDL does not appear to be anywhere near his goal. 6. Depression. As outlined above, the patient is being restarted on citalopram, but his Seroquel is being held. 7. Thrombocytopenia, chronic. Heparin induced antibodies have been ordered; however, the patient appears to have had this since 2011. I recommend further outpatient followup and evaluation with his primary care provider. 8. Dyslipidemia. We are holding the patient's statin, as outlined above. 9. Abnormal liver function tests. Given that he presented with abdominal pain, I will check a Doppler of the abdomen to ensure that there is no thrombus. I will also check a right upper quadrant ultrasound of his liver. Hepatitis panel is negative. I suspect that this is likely fatty liver disease given the patient's body habitus. Weight reduction has been suggested. DISPOSITION: The patient remains in the progressive care unit (PCU). We will discontinue his intravenous fluids. Continue to monitor his liver function tests, his QT and his blood pressure. Once his medications have been optimized, he likely can be discharged home with close outpatient followup. This may be done within the next 24 to 48 hours.
--- NOTE | 2016-02-16 15:59 | REP ---
Complete abdominal sonography with hepatoportal venous Doppler assessment: History: Hepatitis, comparison CT study February 15, 2016. Comparison right upper quadrant sonography is from January 07, 2016. Morphologic findings: Exam quality is limited to some degree by patient body habitus. Right upper quadrant scanning demonstrates a normal sized thin-walled gallbladder without visible stone or polyp. Common bile duct is normal measuring 0.6 cm in greatest diameter. The liver is not felt to be enlarged. No focal liver lesion is seen. Its sonographic texture is somewhat coarse however. Pancreas is obscured by abdominal gas. The spleen is enlarged measuring 16.8 cm in greatest transverse dimension. No focal splenic lesion is seen but there is a small accessory splenule 2.4 cm in greatest diameter in the left upper quadrant. Renal cortical echogenicity pattern is normal and contours are smooth. No hydronephrosis is seen on either side. The right kidney measures 12.8 x 6.8 x 5.1 cm. Left renal dimensions are 11.3 x 6.2 x 5.7 cm. No ascites is seen. Visceral Doppler assessment: The main portal vein is somewhat prominent in size measuring 18.3 mm in AP dimension. Normal direction of flow is seen in the portal vein and splenic vein. No evidence of thrombosis. Portal venous flow velocity in the main portal vein is 36.1 cm/sec. Hepatic arterial peak systolic flow velocity is 102.6 cm/sec. Splenic vein flow velocity is normal at 30 cm/sec. The hepatic veins are patent and waveforms show "portalization". This may be seen in the portal hypertension. Impression: Somewhat prominent portal vein. Normal direction of visceral venous flow. Hepatic veins waveforms consistent with portal hypertension. Signed by Cristiano Lopes MD 02/16/2016 04:50 P
[2016-02-17 00:35] VITALS: BP 148/86
[2016-02-17 05:30] VITALS: BP 154/75
[2016-02-17 06:11] LABS: ALBUMIN 3.3 GM/DL (3.2-5.2); ALBUMIN/GLOBULIN RATIO 1.03 (1.00-1.93); ALKALINE PHOSPHATASE 114 U/L (45-117); ALT/SGPT 116 U/L (12-78); ANION GAP 7 MEQ/L (8-16); AST/SGOT 124 U/L (15-37); BILIRUBIN,TOTAL 1.3 MG/DL (0.2-1.0); BLOOD UREA NITROGEN 9 MG/DL (7-18); CALCIUM LEVEL 8.6 MG/DL (8.5-10.1); CARBON DIOXIDE LEVEL 28 MEQ/L (21-32); CHLORIDE LEVEL 109 MEQ/L (98-107); CREATININE FOR GFR 0.91 MG/DL (0.70-1.30); GLOMERULAR FILTRATION RATE > 60.0 (>56); GLUCOSE, FASTING 83 MG/DL (70-105); POTASSIUM SERUM 3.8 MEQ/L (3.5-5.1); SODIUM LEVEL 144 MEQ/L (136-145); TOTAL PROTEIN 6.5 GM/DL (6.4-8.2)
[2016-02-17 06:19] LABS: MEAN CORPUSCULAR HEMOGLOBIN 31.7 pg (27.0-33.0); MEAN CORPUSCULAR HGB CONC 35.9 g/dl (32.0-36.5); MEAN CORPUSCULAR VOLUME 88.4 fl (80.0-96.0); RED CELL DISTRIBUTION WIDTH 13.6 % (11.5-14.5); WHITE BLOOD COUNT 5.2 K/mm3 (4.0-10.0)
[2016-02-17 08:00] VITALS: BP 145/70
--- NOTE | 2016-02-17 08:01 | ECGEPIP ---
Stationary ECG Study [facility] Test Date: 2016-02-17 Pat Name: RAMILA DE LA FUENTE Department: Room: W2103-35 Gender: M Patient Access Coordinator: HIRAM : 1965 Requested By: NOREEN DE LEON Order Number: [id number] Reading MD: Bib Kumar Measurements Intervals [place] Rate: 72 P: 45 GA: 153 QRS: 7 QRSD: 109 T: 27 QT: 437 QTc: 480 Interpretive Statements SINUS RHYTHM PROLONGED QT INTERVAL increased from 02-16-16 Electronically Signed On 02-17-2016 8:01:42 EST by Bib Kumar
[2016-02-17] MEDS: GABAPENTIN 300 MG CAP PO SCH ×2 (08:19→15:11)
[2016-02-17] MEDS: PANTOPRAZOLE 40MG TAB (PROTONIX) PO SCH (08:19)
[2016-02-17] MEDS: ASPIRIN 81 MG ENTERIC TAB PO SCH (08:19)
[2016-02-17] MEDS: metFORMIN XR 500MG TAB *GLUCOPHAGE XR PO SCH (08:19)
[2016-02-17] MEDS ORDERED: AMBI5TAB PO (09:56)
[2016-02-17 12:00] VITALS: BP 138/70
--- NOTE | 2016-02-17 17:33 | DSES ---
DATE OF ADMISSION: 02/15/2016 DATE OF DISCHARGE: 02/17/2016 DISCHARGE DIAGNOSIS: Orthostatic hypotension. SECONDARY DIAGNOSES: 1. Medication adverse effect. 2. Prolonged QT. 3. Chronic back pain. 4. Hepatitis. 5. Type 2 diabetes. 6. Dyslipidemia. 7. Depression. 8. Insomnia. 9. Thrombocytopenia. HOSPITALIZATION COURSE: The patient is a 50-year-old man who had reportedly been having episodes of lightheadedness after taking his blood pressure medications in the morning. He presented to one of his doctor's offices when he was found to have significantly low systolic blood pressure in the 70s and was referred to the emergency room. There, he did respond quite quickly with intravenous fluids. He was orthostatic in the emergency room, but on further testing, after receiving intravenous fluids, this did completely resolve. Incidentally, the patient was noted to have an elevated QTC of 487. At that time, he was discontinued from citalopram and Seroquel. Repeat EKG the following day revealed a QTC of 444. There was an attempt made to restart the patient on his antidepressant, citalopram, however, his QTC ginny again to 480. As such, both medications were discontinued. The patient was also noted to have elevated liver function tests, which he initially said was new. Hepatitis panel was negative. Right upper quadrant ultrasound revealed some portal hypertension. There was suspicion for fatty liver; however, given the patient's body habitus, as the patient told me that he was relatively new to statin therapy, this medication was held for the time being. His liver function tests were trending down at the time of discharge. SUBJECTIVE: Today, the patient reports that he is completely asymptomatic. He has no complaints of chest pain, shortness of breath, fevers, chills, lightheadedness, dizziness, nausea, vomiting, or episodes of passing out. OBJECTIVE: VITAL SIGNS: Temperature 97.8, pulse 74, respiratory rate 18, blood pressure 145/70, oxygen saturation 95% on room air. GENERAL: He is a morbidly obese. Very pleasant, man lying in bed at a 60 degree angle. He is in no acute distress. HEENT: Cranial nerves II through XII are grossly intact. He has moist mucous membranes. No elevation of central venous pressure. CARDIOVASCULAR EXAMINATION: S1, S2 regular. RESPIRATORY EXAM: Clear. ABDOMINAL EXAM: Grossly obese. LABORATORY STUDIES: WBC 5.2, hemoglobin 14, platelet count 105, chronically low. ESR is unremarkable. Chemistry panel: Sodium 144, potassium 3.8, chloride 109, bicarbonate 28, BUN 9, creatinine 0.9, AST 124 down from 140, ALT 116, down from 125. The patient has multiple sets of cardiac enzymes, which were negative. He did have a lipid panel, which did reveal an elevated fasting LDL at 119. Toxicology was positive for THC. Hepatitis panel was negative. Microbiology: Blood cultures were negative that were drawn at the time of admission. Imaging: As outlined above. ASSESSMENT AND PLAN: This is a 50-year-old man who presented with orthostatic hypotension secondary to medication adverse effect. 1. Orthostatic hypotension secondary to over medication with antihypertensives. At this time, his hydrochlorothiazide has been discontinued. We are restarting Lisinopril at discharge. He did receive approximately 3 liters of fluids. He is no longer orthostatic. His symptoms have completely resolved. 2. Prolonged QT. Likely related to the patient's citalopram and Seroquel, both medications have been discontinued. A trial was given to restart citalopram, which he did not tolerate. Followup with his primary care provider or potentially his psychiatrist, if he has, to try an alternative agent. 3. Chronic back pain, stable. The patient is following with the pain clinic. 4. Type 2 diabetes. The patient is continued on metformin. 5. Dyslipidemia. The patient's LDL is quite elevated; however, given that he has hepatitis worse than usual, we did hold his medication. I suspect that he has fatty liver, but at this time, he is developing portal hypotension and no clear etiology is determined. He may progress to cirrhosis if diagnosis and interventions are not adequately made. 6. Depression. As noted above, the patient is being taken off of citalopram and an additional agent will have to be sought out. 7. Insomnia. The patient's Seroquel is being held. I will provide him with several days of Ambien until he is able to followup with his primary care provider. 8. Thrombocytopenia, chronic since 2011. Continue to followup with his primary care provider. Could consider hematology referral. 9. Deep vein thrombosis (DVT) prophylaxis. Sequential compression device (SCD) and thromboembolic compression stockings (TEDS). No pharmacological agents secondary to thrombocytopenia. DISPOSITION: The patient is being discharged home. He is to followup with his primary care provider within 7 days. Activity and diet are as prior to admission. He is to return to the emergency room should his symptoms worsen. MEDICATIONS: At the time of discharge: - Ambien 5 mg at night as needed for insomnia, quantity 4 - aspirin 81 mg daily - gabapentin 300 mg three times a day - lisinopril 5 mg daily - meloxicam 50 mg daily - metformin 500 mg daily - Protonix 40 mg daily - rizatriptan 5 mg as needed for migraines - tizanidine 8 mg every 8 hours as needed for spasms The patient is stopping atorvastatin, citalopram, hydrochlorothiazide, and Seroquel. Greater than 30 minutes was spent organizing disposition.
--- NOTE | 2016-02-17 23:29 | EDDOCDS ---
Physician Documentation [facility] Name: Jake Butcher Age: 50 yrs Sex: Male : 1965 Arrival Date: 02/15/2016 Time: 12:26 Bed 1 Private MD: Abner Byrd Disposition: 02/15/16 18:10 Hospitalization ordered by Peri Naranjo for Inpatient Admission. Preliminary diagnosis is Hypotension - resolved. - Bed requested for PCU. - Status is Inpatient Admission. kas2 - Condition is Stable. - Problem is new. - Symptoms have improved. Historical: - Allergies: No known drug Allergies; - Home Meds: 1. gabapentin 300 mg Oral cap 1 cap 3 times per day 2. Gypsum 7.5-325 mg Oral tab 1 tab every 6 hours 3. Mobic 15 mg oral tab 1 tab once daily 4. tizanidine 4 mg oral cap 2 caps every 8 hours 5. Seroquel 25 mg Oral tab 1 tab daily 6. rizatriptan 5 mg oral tab prn 7. metformin 500 mg Oral tr24 1 tab once daily 8. hydrochlorothiazide 25 mg Oral tab 1 tab once daily 9. citalopram 40 mg Oral tab 1 tab once daily 10. Lipitor 40 mg Oral tab 1 tab once daily 11. lisinopril 5 mg Oral tab 1 tab once daily 12. Protonix 40 mg oral TbEC 1 tab once daily 13. aspirin 81 mg Oral tab 1 tab once daily - PMHx: Chronic Back pain; Depression; Diabetes - NIDDM: controlled; Hypercholesterolemia; Hypertension; - PSHx: left ankle ORIF; Vasectomy; - Social history: Smoking status: Patient states former smoker of tobacco. No barriers to communication noted, The patient speaks fluent Malian, Speaks appropriately for age. - Family history: Not pertinent. - : The pt / caregiver states he / she is not on anticoagulants. Home medication list is obtained from the patient. - Exposure Risk Screening:: None identified. Vital Signs: 02/14 12:15 BP 135 / 63 (auto/); ck1 12:16 Pulse 91 MON; Pulse Ox 99% ; ck1 12:36 BP 97 / 56; Pulse 56; Resp 20; Temp 97.4; Pulse Ox 96% ; Weight 170.55 kg / 376 lbs; jlf Height 5 ft. 11 in. (180.34 cm); 12:45 BP 93 / 54 (auto/); ck1 12:45 Pulse 57 MON; Pulse Ox 97% ; ck1 13:00 BP 94 / 52 (auto/); ck1 13:00 Pulse 59 MON; Pulse Ox 98% ; ck1 13:15 BP 99 / 61 (auto/); ck1 13:15 Pulse 56 MON; Pulse Ox 96% ; ck1 13:30 BP 104 / 59 (auto/); ck1 13:30 Pulse 56 MON; Pulse Ox 95% ; ck1 13:45 BP 107 / 64 (auto/); ck1 13:45 Pulse 56 MON; Pulse Ox 95% ; ck1 14:00 BP 101 / 51 (auto/); ck1 14:00 Pulse 57 MON; Pulse Ox 93% ; ck1 14:15 BP 99 / 54 (auto/); ck1 14:15 Pulse 58 MON; Pulse Ox 96% ; ck1 14:30 BP 100 / 57 (auto/); ck1 14:30 Pulse 59 MON; Pulse Ox 95% ; ck1 14:45 BP 103 / 55 (auto/); ck1 14:45 Pulse 55 MON; Pulse Ox 95% ; ck1 15:00 BP 105 / 55 (auto/); ck1 15:00 Pulse 55 MON; Pulse Ox 95% ; ck1 15:15 BP 114 / 56 (auto/); ck1 15:15 Pulse 54 MON; Pulse Ox 95% ; ck1 15:30 BP 115 / 59 (auto/); ck1 15:30 Pulse 56 MON; Pulse Ox 94% ; ck1 15:45 BP 118 / 67 (auto/); ck1 15:45 Pulse 56 MON; Pulse Ox 95% ; ck1 16:00 BP 131 / 71 (auto/); ck1 16:00 Pulse 57 MON; Pulse Ox 96% ; ck1 16:15 BP 128 / 68 (auto/); ck1 16:15 Pulse 56 MON; Pulse Ox 96% ; ck1 16:30 BP 140 / 74 (auto/); ck1 16:30 Pulse 57 MON; Pulse Ox 96% ; ck1 16:45 Pulse 57 MON; Pulse Ox 96% ; ck1 16:45 BP 127 / 66 (auto/); ck1 16:48 Resp 18; Temp 95.8(O); ck1 17:00 BP 121 / 63 (auto/); ck1 17:00 Pulse 56 MON; Pulse Ox 96% ; ck1 17:15 BP 133 / 62 (auto/); ck1 17:15 Pulse 57 MON; Pulse Ox 96% ; ck1 17:30 BP 135 / 65 (auto/); ck1 17:30 Pulse 56 MON; Pulse Ox 97% ; ck1 17:45 BP 142 / 74 (auto/); ck1 17:45 Pulse 56 MON; Pulse Ox 96% ; ck1 18:00 BP 135 / 68 (auto/); ck1 18:00 Pulse 57 MON; Pulse Ox 97% ; ck1 18:15 BP 135 / 70 (auto/); ck1 18:15 Pulse 58 MON; Pulse Ox 97% ; ck1 18:30 BP 136 / 76 (auto/); kas2 18:30 Pulse 56 MON; Pulse Ox 97% ; kas2 18:45 BP 124 / 61 (auto/); kas2 18:45 Pulse 58 MON; Pulse Ox 97% ; kas2 19:00 BP 121 / 60 (auto/); kas2 19:00 Pulse 57 MON; Pulse Ox 98% ; kas2 19:15 BP 123 / 59 (auto/); kas2 19:15 Pulse 57 MON; Pulse Ox 98% ; kas2 19:30 BP 127 / 64 (auto/); kas2 19:30 Pulse 58 MON; Pulse Ox 98% ; kas2 19:35 BP 127 / 64; Pulse 57; Resp 18; Temp 98.1(O); Pulse Ox 98% ; Pain 0/10; kas2 19:45 BP 133 / 69 (auto/); kas2 19:45 Pulse 57 MON; Pulse Ox 99% ; kas2 20:00 BP 129 / 61 (auto/); kas2 20:00 Pulse 57 MON; Pulse Ox 99% ; kas2 20:15 BP 137 / 69 (auto/); kas2 20:15 Pulse 60 MON; Pulse Ox 98% ; kas2 20:30 BP 148 / 67 (auto/); kas2 20:30 Pulse 64 MON; Pulse Ox 98% ; kas2 20:45 BP 116 / 57 (auto/); kas2 20:45 Pulse 60 MON; Pulse Ox 99% ; kas2 21:00 BP 127 / 67 (auto/); kas2 21:00 Pulse 59 MON; Pulse Ox 99% ; kas2 21:15 BP 128 / 70 (auto/); kas2 21:15 Pulse 58 MON; Pulse Ox 98% ; kas2 21:30 BP 136 / 72 (auto/); kas2 21:30 Pulse 61 MON; Pulse Ox 98% ; kas2 21:38 BP 18 / ???; Temp 97.9(O); Pain 0/10; kas2 21:45 BP 114 / 57 (auto/); kas2 21:45 Pulse 61 MON; Pulse Ox 97% ; kas2 22:00 BP 129 / 61 (auto/); kas2 22:00 Pulse 63 MON; Pulse Ox 96% ; kas2 12:36 Body Mass Index 52.44 (170.55 kg, 180.34 cm) [facility] MDM: 12:36 Wire Frame Lampshade Maker/Pulse Ox/q 15 min VS ordered. sd1 12:36 Accucheck ordered. sd1 12:36 IV Saline Lock ordered. sd1 12:36 Oxygen at 4L/Min NC or Home dosage ordered. sd1 12:36 Rhythm Strip to chart ordered. sd1 12:36 -Blood Culture (Adults Only), peripheral from different site, or from device/port/PICC sd1 etc. if present ordered. 12:36 NS 0.9% 1000 ml IV at bolus once ordered. sd1 12:37 CBC with Diff Ordered. EDMS 12:37 Cardiac Injury Profile Ordered. EDMS 12:37 Liver Profile Ordered. EDMS 12:37 MED Profile Ordered. EDMS 12:37 Thyroid Stimulating Hormone Ordered. EDMS 12:37 Troponin Ordered. EDMS 12:37 Lactic Acid (Ramsay tube on ice) Ordered. EDMS 12:37 -Blood Culture Ordered. EDMS 12:37 PT/INR Ordered. EDMS 12:37 Type & Screen Ordered. EDMS 12:37 ECG WITH READING ER PHYS+CARDIAG ordered. EDMS 12:45 -Blood Culture (Adults Only), peripheral from different site, or from device/port/PICC lbd etc. if present complete. 12:48 BLOOD CULTURES Ordered. EDMS 13:00 Drug Eval Toxicology ED Only Ordered. EDMS 13:03 Fingerstick Blood Sugar Ordered. EDMS 13:07 PT/INR Reviewed. sd1 13:07 Type & Screen Reviewed. sd1 13:07 Fingerstick Blood Sugar Reviewed. sd1 13:19 BED REQUEST+ADM ordered. EDMS 13:46 CBC with Diff Reviewed. sd1 13:46 Liver Profile Reviewed. sd1 13:46 MED Profile Reviewed. sd1 13:46 Cardiac Injury Profile Reviewed. sd1 13:46 Thyroid Stimulating Hormone Reviewed. sd1 13:46 Troponin Reviewed. sd1 13:46 Lactic Acid (Ramsay tube on ice) Reviewed. sd1 13:49 CT ABD & PELVIS: IV Contrast Only Ordered. EDMS 14:25 Type & Screen Reviewed. sd1 15:47 Hepatitis Profile Ordered. EDMS 16:08 Financial registration complete. zo 16:11 [facility] Payment Agreement was scanned into [employer] and attached to record. zo 18:41 Admission / Observation Status ordered. EDMS 18:41 ELECTROCARDIOGRAM ADULT ordered. EDMS 18:41 NO ADDED SALT DIET ordered. EDMS 18:41 CARDIAC MARKER PANEL Ordered. EDMS 18:48 MAGNESIUM LEVEL Ordered. EDMS 18:54 REGULAR+DIET ordered. EDMS 19:32 BASIC METABOLIC PROFILE Ordered. EDMS 19:32 CBC WITH DIFFERENTIAL Ordered. EDMS 19:33 CARDIAC MARKER PANEL Ordered. EDMS 19:33 CARDIAC MARKER PANEL Ordered. EDMS 21:00 HEPARIN INDUCED PLATELET MITCHELL Ordered. EDMS 21:00 PATHOLOGIST REVIEW COMPREHENSI Ordered. EDMS 21:01 IONIZED CALCIUM Ordered. EDMS 21:01 CARDIAC RISK PROFILE Ordered. EDMS 02/15 10:10 T-Sheet-- Draft Copy was scanned into [employer] and attached to record. Point of Care Testing: Blood Glucose: 02/14 13:00 Blood Glucose: 91 mg/dL; ck1 Ranges: Administered Medications: 12:39 Drug: NS 0.9% 1000 ml [sodium chloride 0.9 % intravenous solution] Route: IV; Rate: ck1 bolus; Site: right antecubital; 15:28 Follow up: IV Status: Completed infusion ck1 Signatures: Dispatcher [employer] EDNJ Erin Laurent MD MD sd1 Anabella Otero, Pediatric Anesthesiologist Unit Humaira Ortiz RN RN daq Barnhardt, Gloria, Reg Reg Chanda Merino RN RN ck1 Oma Fernandes Kim, RN RN kas2 The chart was reviewed and I authenticate all verbal orders and agree with the evaluation and treatment provided.Corrections: (The following items were deleted from the chart) 13:01 12:37 DRUG EVAL TOXICOLOGY ED ONLY+LAB ordered. EDMS EDMS 18:47 18:41 MAGNESIUM LEVEL ordered. EDMS EDMS Attachments: 16:11 [facility] Payment Agreement zo 02/15 10:10 T-Sheet-- Draft Copy gb Chart Complete MTDD
--- NOTE | 2016-02-17 23:29 | EDDOCDS ---
Nurse's Notes [facility] Name: Ramila Butcher Age: 50 yrs Sex: Male : 1965 Arrival Date: 02/15/2016 Time: 12:26 Bed 1 Private MD: Abner Byrd Diagnosis: Hypotension-resolved Presentation: 02/14 12:29 Presenting complaint: EMS states: Weakness for one week, hypotension 73/38. ck1 Suicide/Homicide risk assessment- the patient denies having any suicidal and/or homicidal ideations and does not present with any other emotional, behavioral or mental health complaints. Status: Patient is not a ambulatory service representative or dependent. Transition of care: patient was received from a primary care office; Dr. Tolentino. 12:29 Method Of Arrival: Ambulance ck1 12:29 Acuity: BEVERLEY Level 2 ck1 12:39 Adult Sepsis Screening: The patient does not have new or worsening altered mentation. ck1 Patient's respiratory rate is less than 22. Systolic blood pressure is less than or equal to 100 (1 point). Patient has a qSOFA score of 1- Negative Sepsis Screen. Triage Assessment: 12:37 General: Appears in no apparent distress, comfortable, Behavior is appropriate for age, ck1 cooperative. Pain: Location: back Pain currently is 8 out of 10 on a pain scale. Is chronic. HIV screening NA for this visit Offered previously. Neurological: Level of Consciousness is awake, alert, obeys commands, Oriented to person, place, time. Cardiovascular: Chest pain is denied. Respiratory: Respiratory effort is unlabored, Respiratory pattern is regular, symmetrical. GI: No deficits noted. Derm: Skin is intact, is healthy with good turgor, Skin is pink, warm & dry. Musculoskeletal: Circulation, motion, and sensation intact Range of motion intact in all extremities. Historical: - Allergies: No known drug Allergies; - Home Meds: 1. gabapentin 300 mg Oral cap 1 cap 3 times per day 2. Hinckley 7.5-325 mg Oral tab 1 tab every 6 hours 3. Mobic 15 mg oral tab 1 tab once daily 4. tizanidine 4 mg oral cap 2 caps every 8 hours 5. Seroquel 25 mg Oral tab 1 tab daily 6. rizatriptan 5 mg oral tab prn 7. metformin 500 mg Oral tr24 1 tab once daily 8. hydrochlorothiazide 25 mg Oral tab 1 tab once daily 9. citalopram 40 mg Oral tab 1 tab once daily 10. Lipitor 40 mg Oral tab 1 tab once daily 11. lisinopril 5 mg Oral tab 1 tab once daily 12. Protonix 40 mg oral TbEC 1 tab once daily 13. aspirin 81 mg Oral tab 1 tab once daily - PMHx: Chronic Back pain; Depression; Diabetes - NIDDM: controlled; Hypercholesterolemia; Hypertension; - PSHx: left ankle ORIF; Vasectomy; - Social history: Smoking status: Patient states former smoker of tobacco. No barriers to communication noted, The patient speaks fluent Slovenian, Speaks appropriately for age. - Family history: Not pertinent. - : The pt / caregiver states he / she is not on anticoagulants. Home medication list is obtained from the patient. - Exposure Risk Screening:: None identified. Screenin:36 Screening information is obtained from the patient. Fall risk: At risk due to weakness. ck1 The following interventions are performed due to a positive Fall Risk Screen: Fall Risk is added to Special Handling on the patient Summary Screen. A Fall Risk Bracelet was applied to the patient. Side Rails are placed in the up position. A Call Landry is given with instruction to call for help when getting out of bed. Fall Alert bracelet is placed on the patient. Assistance ADL's: requires no assistance with activities of daily living. Abuse/DV Screen: The patient / caregiver reports he/she is: not in a situation that causes fear, pain or injury. Nutritional screening: No deficits noted. Advance Directives: Currently, there is no health care proxy. home support is adequate. Assessment: 12:37 General: see triage note. ck1 13:26 General: Appears in no apparent distress, Behavior is appropriate for age, cooperative. ck1 Pain: Denies pain. Pain: Location: back Pain currently is 8 out of 10 on a pain scale. Is chronic. Neurological: Level of Consciousness is awake, alert, obeys commands, Oriented to person, place, time. Cardiovascular: Rhythm is sinus bradycardia. Respiratory: Airway is patent Respiratory effort is unlabored, Respiratory pattern is regular, symmetrical. Derm: Skin is intact, is healthy with good turgor, Skin is pink, warm & dry. Musculoskeletal: Circulation, motion, and sensation intact Range of motion intact in all extremities. 14:27 General: Appears in no apparent distress, comfortable, Behavior is appropriate for age, ck1 cooperative. Neurological: Level of Consciousness is awake, alert, obeys commands, Oriented to person, place, time. Cardiovascular: Rhythm is sinus rhythm. Respiratory: Respiratory effort is unlabored, Respiratory pattern is regular, symmetrical. GI: No deficits noted. Derm: Skin is intact, is healthy with good turgor, Skin is pink, warm & dry. 15:27 General: Appears in no apparent distress, comfortable, Behavior is appropriate for age, ck1 cooperative. Pain: Denies pain. Neurological: Level of Consciousness is awake, alert, Oriented to person, place, time. Cardiovascular: Rhythm is sinus bradycardia. Respiratory: Respiratory effort is unlabored, Respiratory pattern is regular, symmetrical. GI: No deficits noted. Derm: Skin is intact, is healthy with good turgor, Skin is pink, warm & dry. 16:16 Adult Sepsis Screening: The patient does not have new or worsening altered mentation. ck1 Patient's respiratory rate is less than 22. Systolic blood pressure is greater than 100. Patient has a qSOFA score of 0- Negative Sepsis Screen. 16:44 Reassessment: Patient appears in no apparent distress at this time. Patient denies pain ck1 at this time. resting quietly on stretcher with eyes closed. Call light in reach, will continue to monitor patient. 17:38 General: Appears in no apparent distress, comfortable, Behavior is appropriate for age, ck1 cooperative. Pain: Location: back Is chronic. Neurological: Level of Consciousness is awake, alert, obeys commands, Oriented to person, place, time. Cardiovascular: Rhythm is sinus rhythm. Respiratory: Respiratory effort is unlabored, Respiratory pattern is regular, symmetrical. GI: No deficits noted. Derm: Skin is intact, is healthy with good turgor, Skin is pink, warm & dry. Musculoskeletal: Circulation, motion, and sensation intact Range of motion intact in all extremities. 18:21 Reassessment: Patient appears in no apparent distress at this time. General: Appears to ck1 be sleeping. Neurological: No deficits noted. Cardiovascular: Rhythm is sinus rhythm. Respiratory: Respiratory effort is unlabored, Respiratory pattern is regular, symmetrical. GI: No deficits noted. Derm: Skin is intact, is healthy with good turgor, Skin is pink, warm & dry. 19:02 General: Verbal report given by Chanda Casillas RN. Assumed care of patient at this time.. kas2 19:33 General: Appears in no apparent distress, comfortable, to be sleeping. Behavior is kas2 appropriate for age, cooperative. Pain: Denies pain. Neurological: No deficits noted. Level of Consciousness is awake, alert, obeys commands, Oriented to person, place, time. Cardiovascular: Rhythm is sinus bradycardia No ectopy. Respiratory: Airway is patent Respiratory effort is even, unlabored, Respiratory pattern is regular, symmetrical, Breath sounds are clear bilaterally. GI: No deficits noted. Derm: Skin is intact, is healthy with good turgor, Skin is dry, Skin is pink, warm & dry. Skin temperature is warm. Musculoskeletal: Circulation, motion, and sensation intact Range of motion intact in all extremities. 20:26 General: Patient up to bedside to urinate with assist of RN. Resettled in bed. Urine kas2 sent to lab. Denies pain or discomfort at this time. at bedside. Waiting to go up to floor. Will continue to monitor.. 21:36 General: Patient continues to rest in bed with family at bedside. VSS. Airway patent. kas2 Respiratory pattern even and unlabored. Denies pain or discomfort at this time. No apparent distress. Will continue to monitor.. 22:12 General: Appears in no apparent distress, comfortable, Behavior is appropriate for age, kas2 cooperative. Pain: Denies pain. Neurological: Level of Consciousness is awake, alert, obeys commands, Oriented to person, place, time. Cardiovascular: Rhythm is sinus rhythm No ectopy. Respiratory: Airway is patent Respiratory effort is even, unlabored, Respiratory pattern is regular, symmetrical. Derm: Skin is intact, is healthy with good turgor, Skin is dry, Skin is pink, warm & dry. Skin temperature is warm. Vital Signs: 12:15 BP 135 / 63 (auto/); ck1 12:16 Pulse 91 MON; Pulse Ox 99% ; ck1 12:36 BP 97 / 56; Pulse 56; Resp 20; Temp 97.4; Pulse Ox 96% ; Weight 170.55 kg; Height 5 ft. jlf 11 in. (180.34 cm); 12:45 BP 93 / 54 (auto/); ck1 12:45 Pulse 57 MON; Pulse Ox 97% ; ck1 13:00 BP 94 / 52 (auto/); ck1 13:00 Pulse 59 MON; Pulse Ox 98% ; ck1 13:15 BP 99 / 61 (auto/); ck1 13:15 Pulse 56 MON; Pulse Ox 96% ; ck1 13:30 BP 104 / 59 (auto/); ck1 13:30 Pulse 56 MON; Pulse Ox 95% ; ck1 13:45 BP 107 / 64 (auto/); ck1 13:45 Pulse 56 MON; Pulse Ox 95% ; ck1 14:00 BP 101 / 51 (auto/); ck1 14:00 Pulse 57 MON; Pulse Ox 93% ; ck1 14:15 BP 99 / 54 (auto/); ck1 14:15 Pulse 58 MON; Pulse Ox 96% ; ck1 14:30 BP 100 / 57 (auto/); ck1 14:30 Pulse 59 MON; Pulse Ox 95% ; ck1 14:45 BP 103 / 55 (auto/); ck1 14:45 Pulse 55 MON; Pulse Ox 95% ; ck1 15:00 BP 105 / 55 (auto/); ck1 15:00 Pulse 55 MON; Pulse Ox 95% ; ck1 15:15 BP 114 / 56 (auto/); ck1 15:15 Pulse 54 MON; Pulse Ox 95% ; ck1 15:30 BP 115 / 59 (auto/); ck1 15:30 Pulse 56 MON; Pulse Ox 94% ; ck1 15:45 BP 118 / 67 (auto/); ck1 15:45 Pulse 56 MON; Pulse Ox 95% ; ck1 16:00 BP 131 / 71 (auto/); ck1 16:00 Pulse 57 MON; Pulse Ox 96% ; ck1 16:15 BP 128 / 68 (auto/); ck1 16:15 Pulse 56 MON; Pulse Ox 96% ; ck1 16:30 BP 140 / 74 (auto/); ck1 16:30 Pulse 57 MON; Pulse Ox 96% ; ck1 16:45 Pulse 57 MON; Pulse Ox 96% ; ck1 16:45 BP 127 / 66 (auto/); ck1 16:48 Resp 18; Temp 95.8(O); ck1 17:00 BP 121 / 63 (auto/); ck1 17:00 Pulse 56 MON; Pulse Ox 96% ; ck1 17:15 BP 133 / 62 (auto/); ck1 17:15 Pulse 57 MON; Pulse Ox 96% ; ck1 17:30 BP 135 / 65 (auto/); ck1 17:30 Pulse 56 MON; Pulse Ox 97% ; ck1 17:45 BP 142 / 74 (auto/); ck1 17:45 Pulse 56 MON; Pulse Ox 96% ; ck1 18:00 BP 135 / 68 (auto/); ck1 18:00 Pulse 57 MON; Pulse Ox 97% ; ck1 18:15 BP 135 / 70 (auto/); ck1 18:15 Pulse 58 MON; Pulse Ox 97% ; ck1 18:30 BP 136 / 76 (auto/); kas2 18:30 Pulse 56 MON; Pulse Ox 97% ; kas2 18:45 BP 124 / 61 (auto/); kas2 18:45 Pulse 58 MON; Pulse Ox 97% ; kas2 19:00 BP 121 / 60 (auto/); kas2 19:00 Pulse 57 MON; Pulse Ox 98% ; kas2 19:15 BP 123 / 59 (auto/); kas2 19:15 Pulse 57 MON; Pulse Ox 98% ; kas2 19:30 BP 127 / 64 (auto/); kas2 19:30 Pulse 58 MON; Pulse Ox 98% ; kas2 19:35 BP 127 / 64; Pulse 57; Resp 18; Temp 98.1(O); Pulse Ox 98% ; Pain 0/10; kas2 19:45 BP 133 / 69 (auto/); kas2 19:45 Pulse 57 MON; Pulse Ox 99% ; kas2 20:00 BP 129 / 61 (auto/); kas2 20:00 Pulse 57 MON; Pulse Ox 99% ; kas2 20:15 BP 137 / 69 (auto/); kas2 20:15 Pulse 60 MON; Pulse Ox 98% ; kas2 20:30 BP 148 / 67 (auto/); kas2 20:30 Pulse 64 MON; Pulse Ox 98% ; kas2 20:45 BP 116 / 57 (auto/); kas2 20:45 Pulse 60 MON; Pulse Ox 99% ; kas2 21:00 BP 127 / 67 (auto/); kas2 21:00 Pulse 59 MON; Pulse Ox 99% ; kas2 21:15 BP 128 / 70 (auto/); kas2 21:15 Pulse 58 MON; Pulse Ox 98% ; kas2 21:30 BP 136 / 72 (auto/); kas2 21:30 Pulse 61 MON; Pulse Ox 98% ; kas2 21:38 BP 18 / ???; Temp 97.9(O); Pain 0/10; kas2 21:45 BP 114 / 57 (auto/); kas2 21:45 Pulse 61 MON; Pulse Ox 97% ; kas2 22:00 BP 129 / 61 (auto/); kas2 22:00 Pulse 63 MON; Pulse Ox 96% ; kas2 12:36 Body Mass Index 52.44 (170.55 kg, 180.34 cm) jl Vitals: 12:39 Log In Time N/A - ambulance arrival. ck1 ED Course: 12:27 Patient visited by Anabella Otero, Fire Assistant. lbd 12:27 Abner Byrd DO is Private Physician. lbd 12:27 Patient moved to Waiting lbd 12:28 Chanda Chirinos,RN is Primary Nurse. po 12:28 Patient moved to 1 po 12:29 Erin Laurent MD is Attending Physician. sd1 12:29 Patient visited by Erin Laurent MD. sd1 12:31 Triage Initiated ck1 12:36 Patient visited by Mlie Chauhan PCA. jlf 12:36 Inserted saline lock: 18 gauge in left antecubital area and blood collected. The ck1 patient tolerated the procedure well. by Galileo Tavares RN. 12:37 The patient / caregiver is instructed regarding the plan of care and ED course. ck1 12:39 Type & Screen Sent. ck1 12:39 PT/INR Sent. ck1 12:39 -Blood Culture Sent. ck1 12:39 Lactic Acid (Ramsay tube on ice) Sent. ck1 12:39 CBC with Diff Sent. ck1 12:39 Cardiac Injury Profile Sent. ck1 12:39 Liver Profile Sent. ck1 12:39 MED Profile Sent. ck1 12:40 Thyroid Stimulating Hormone Sent. ck1 12:40 Troponin Sent. ck1 12:43 Patient visited by Mile Chauhan PCA. jlf 12:43 EKG done. (by ED staff). Reviewed by Erin Laurent MD. jlf 12:50 BLOOD CULTURES Sent. ck1 13:08 Patient visited by Chanda Chirinos,RN. ck1 13:40 Patient visited by Mile Chauhan PCA. jlf 14:14 Patient visited by Mile Chauhan PCA. jlf 14:23 No procedures done that require assistance. ck1 14:27 Patient visited by Chanda Chirinos RN. ck1 14:27 PO fluids given. ck1 15:12 CT ABD & PELVIS: IV Contrast Only Returned. EDMS 15:19 Patient visited by Chanda Chirinos RN. ck1 15:47 Patient visited by Chanda Chirinos RN. ck1 16:11 [facility] Payment Agreement was scanned into [employer] and attached to record. zo 16:16 Patient visited by Chanda Chirinos RN. ck1 16:44 Patient visited by Chanda Chirinos RN. ck1 17:17 Patient visited by Mile Chauhan PCA. jlf 17:38 Patient visited by Chanda Chirinos RN. ck1 18:08 Peri Naranjo is Hospitalizing Provider. sd1 18:50 Primary Nurse role handed off by Chanda Chirinos RN ck1 19:01 Shreya Rey RN is Primary Nurse. kas2 19:03 Patient visited by Shreya Rey RN. kas2 19:39 Patient visited by Shreya Rey RN. kas2 20:25 EKG-ADULT Returned. EDMS 20:27 Patient visited by Shreya Rey RN. kas2 21:39 Patient visited by Shreya Rey RN. kas2 22:28 Patient visited by Shreya Rey RN. kas2 02/15 10:10 T-Sheet-- Draft Copy was scanned into [employer] and attached to record. gb Administered Medications: 02/14 12:39 Drug: NS 0.9% 1000 ml [sodium chloride 0.9 % intravenous solution] Route: IV; Rate: ck1 bolus; Site: right antecubital; 15:28 Follow up: IV Status: Completed infusion ck1 Point of Care Testing: Blood Glucose: 13:00 Blood Glucose: 91 mg/dL; ck1 Ranges: Order Results: Lab Order: CBC with Diff; SPEC'M 02/15/16 12:38 Test: WHITE BLOOD COUNT; Value: 4.4; Range: 4.0-10.0; Units: K/mm3; Status: F Test: RED BLOOD COUNT; Value: 3.99; Range: 4.30-6.10; Abnormal: Below low normal; Units: M/mm3; Status: F Test: HEMOGLOBIN; Value: 12.8; Range: 14.0-18.0; Abnormal: Below low normal; Units: g/dl; Status: F Test: HEMATOCRIT; Value: 35.9; Range: 42.0-52.0; Abnormal: Below low normal; Units: %; Status: F Test: MEAN CORPUSCULAR VOLUME; Value: 89.9; Range: 80.0-96.0; Units: fl; Status: F Test: MEAN CORPUSCULAR HEMOGLOBIN; Value: 32.0; Range: 27.0-33.0; Units: pg; Status: F Test: MEAN CORPUSCULAR HGB CONC; Value: 35.6; Range: 32.0-36.5; Units: g/dl; Status: F Test: RED CELL DISTRIBUTION WIDTH; Value: 13.7; Range: 11.5-14.5; Units: %; Status: F Test: PLATELET COUNT, AUTOMATED; Value: 89; Range: 150-450; Abnormal: Below low normal; Units: k/mm3; Status: F Test: NEUTROPHILS %; Value: 56.9; Range: 36.0-66.0; Units: %; Status: F Test: LYMPH %; Value: 28.8; Range: 24.0-44.0; Units: %; Status: F Test: MONO %; Value: 7.0; Range: 0.0-5.0; Abnormal: Above high normal; Units: %; Status: F Test: EOS %; Value: 3.9; Range: 0.0-3.0; Abnormal: Above high normal; Units: %; Status: F Test: BASO %; Value: 0.6; Range: 0.0-1.0; Units: %; Status: F Test: LARGE UNSTAINED CELL %; Value: 2.9; Range: 0.0-4.0; Units: %; Status: F Test: NEUTROPHILS #; Value: 2.5; Range: 1.8-7.7; Units: K/mm3; Status: F Test: LYMPH #; Value: 1.3; Range: 1.5-4.5; Abnormal: Below low normal; Units: K/mm3; Status: F Test: MONO #; Value: 0.3; Range: 0.0-0.8; Units: K/mm3; Status: F Test: EOS #; Value: 0.2; Range: 0.0-0.50; Units: K/mm3; Status: F Test: BASO #; Value: 0.0; Range: 0.0-0.2; Units: K/mm3; Status: F Test: LARGE UNSTAINED CELL #; Value: 0.1; Range: 0.0-0.4; Units: K/mm3; Status: F Lab Order: Cardiac Injury Profile; SPEC'M 02/15/16 12:38 Test: CPK CREATINE PHOSPHOKINASE; Value: 70; Range: 39-308; Units: U/L; Status: F Test: CK-MB VALUE MASS; Value: 1.0; Range: 0.0-3.6; Units: NG/ML; Status: F Test: MB/CK RELATIVE INDEX; Value: 1.42; Range: < OR =4; Status: F Test Note: ; DIAGNOSIS CRITERIA MMB ng/ml Relative Index (RI) NON-AMI < or = 5 N/A RAMSAY ZONE > 5 < or = 4 AMI > 5 > 4 Lab Order: Liver Profile; SPEC'M 02/15/16 12:38 Test: AST/SGOT; Value: 121; Range: 15-37; Abnormal: Above high normal; Units: U/L; Status: F Test: ALT/SGPT; Value: 102; Range: 12-78; Abnormal: Above high normal; Units: U/L; Status: F Test: ALKALINE PHOSPHATASE; Value: 85; Range: 45-117; Units: U/L; Status: F Test: BILIRUBIN,TOTAL; Value: 0.7; Range: 0.2-1.0; Units: MG/DL; Status: F Test: BILIRUBIN,DIRECT; Value: 0.3; Range: 0.0-0.2; Abnormal: Above high normal; Units: MG/DL; Status: F Test: TOTAL PROTEIN; Value: 5.3; Range: 6.4-8.2; Abnormal: Below low normal; Units: GM/DL; Status: F Test: ALBUMIN; Value: 2.6; Range: 3.2-5.2; Abnormal: Below low normal; Units: GM/DL; Status: F Test: ALBUMIN/GLOBULIN RATIO; Value: 0.96; Range: 1.00-1.93; Abnormal: Below low normal; Status: F Lab Order: MED Profile; SPEC'M 02/15/16 12:38 Test: GLUCOSE, FASTING; Value: 115; Range: 70-105; Abnormal: Above high normal; Units: MG/DL; Status: F Test: BLOOD UREA NITROGEN; Value: 15; Range: 7-18; Units: MG/DL; Status: F Test: CREATININE FOR GFR; Value: 1.28; Range: 0.70-1.30; Units: MG/DL; Status: F Test: GLOMERULAR FILTRATION RATE; Value: > 60.0; Range: >56; Status: F Test: SODIUM LEVEL; Value: 143; Range: 136-145; Units: MEQ/L; Status: F Test: POTASSIUM SERUM; Value: 3.4; Range: 3.5-5.1; Abnormal: Below low normal; Units: MEQ/L; Status: F Test: CHLORIDE LEVEL; Value: 107; Range: 98-107; Units: MEQ/L; Status: F Test: CARBON DIOXIDE LEVEL; Value: 29; Range: 21-32; Units: MEQ/L; Status: F Test: ANION GAP; Value: 7; Range: 8-16; Abnormal: Below low normal; Units: MEQ/L; Status: F Test: CALCIUM LEVEL; Value: 7.8; Range: 8.5-10.1; Abnormal: Below low normal; Units: MG/DL; Status: F Test Note: ; Units are mL/min/1.73 m2 Chronic Kidney Disease Staging per NKF: Stage I & II GFR >=60 Normal to Mildly Decreased Stage III GFR 30-59 Moderately Decreased Stage IV GFR 15-29 Severely Decreased Stage V GFR <15 Very Little GFR Left ESRD GFR <15 on IT TECHNICAL SUPPORT SPECIALIST Lab Order: Thyroid Stimulating Hormone; SPEC'M 02/15/16 12:38 Test: THYROID STIMULATING HORMONE; Value: 2.140; Range: 0.358-3.740; Units: uIU/ML; Status: F Lab Order: Troponin; SPEC'M 02/15/16 12:38 Test: TROPONIN I; Value: < 0.02; Range: < 0.10; Units: NG/ML; Status: F Test Note: ; Troponin I Reference Interval for Siemens Canmer LOCI: 99th Percentile= 0.00-0.045 ng/ml Risk Stratification: <= 0.10 ng/ml Decreased Risk for Adverse Clinical Events. 0.10-1.50 ng/ml Increased Risk for Adverse Clinical Events. Evaluation of additional criterion and/or repeat testing in 2-6 hours is suggested to rule out myocardial damage. >= 1.50 ng/ml Indicative of Myocardial Injury. Lab Order: Lactic Acid (Ramsay tube on ice); [facility]02/15[facility] 12:38 Test: LACTIC ACID LEVEL, LACTATE; Value: 1.1; Range: 0.4-2.0; Units: MMOL/L; Status: F Lab Order: PT/INR; [facility] 02/15/16 12:38 Test: PROTHROMBIN TIME; Value: 15.2; Range: 12.3-14.5; Abnormal: Above high normal; Units: SECONDS; Status: F Test: INR; Value: 1.19; Status: F Test Note: ; THERAPUTIC HUMAN INR VALUES INDICATIONS NORMAL RANGES PROPHYLAXIS/TREATMENT OF: VENOUS THROMBOSIS 2.0-3.0 PULMONARY EMBOLISM 2.0-3.0 PREVENTION OF SYSTEMIC EMBOLISM FROM: TISSUE HEART VALVES 2.0-3.0 ACUTE MYOCARDIAL INFARCTION 2.0-3.0 VALVULAR HEART DISEASE 2.0-3.0 ATRIAL FIBRILLATION 2.0-3.0 MECHANICAL VALVES(HIGH RISK) 2.5-3.5 RECURRENT MYOCARDIAL INFARCTION 2.5-3.5 Lab Order: Type & Screen; [facility] 02/15/16 12:38 Test: BLOOD TYPE; Value: A NEG; Status: F Test: AB SCREEN (INDIRECT JORDY)GEL; Value: NEGATIVE; Status: F Lab Order: Fingerstick Blood Sugar; [facility] 02/15/16 12:54 Test: BEDSIDE GLUCOSE; Value: 91; Range: 70-105; Units: MG/DL; Status: F Lab Order: MAGNESIUM LEVEL; [facility] 02/15/16 12:38 Test: MAGNESIUM LEVEL; Value: 1.8; Range: 1.8-2.4; Units: MG/DL; Status: F Radiology Order: EKG-ADULT Test: EKG-ADULT REASON FOR EXAMINATION: weakness; Stationary ECG Study; [facility] - ED; ; Test Date: 2016-02-15; Pat Name: RAMILA BUTCHER Department:; Room: -; Gender: M Hide Or Skin Buffer: elise; : 1965 Requested By: Erin Laurent; Order Number: [id number] Reading MD: Erin Laurent; Measurements; Intervals [place]; Rate: 57 P: 15; MT: 143 QRS: 31; QRSD: 106 T: 29; QT: 497; QTc: 487; Interpretive Statements; SINUS BRADYCARDIA; PROLONGED QT INTERVAL; DECREASED RATE 01/07/16; Electronically Signed On 02-15-2016 20:02:33 EST by Erin Laurent; Radiology Order: CT ABD & PELVIS: IV Contrast Only Test: CT ABD & PELVIS: IV Contrast Only REASON FOR EXAMINATION: Abdomen Pain; Clinical: Abdominal pain.; ; Technique: Axial contrast enhanced images from the lung bases to the pubic; symphysis using 100 ml Isovue 370 intravenous contrast material with coronal and; sagittal re-formations.; ; Comparison: None.; ; Findings:; Liver, spleen, pancreas, gallbladder, bilateral adrenal glands and kidneys are; normal. The enteric system is without obstruction or acute inflammatory process; and a normal terminal ileum and appendix are identified in the right lower; quadrant. 1 cm fat containing periumbilical hernia noted. Few colonic; diverticula noted without acute diverticulitis. Pelvis demonstrates normal; bladder and age appropriate prostate/seminal vesicles. No pelvic fluid or; ascites. No intra-abdominal or retroperitoneal adenopathy. No free air.; Vasculature is normal and without aneurysm or dissection. Musculoskeletal; structures demonstrate degenerative changes without focal osseous abnormality.; Lung bases clear.; ; Impression:; No acute intra-abdominal or pelvic pathology appreciated.; Scattered colonic diverticula without acute diverticulitis.; 1 cm fat containing periumbilical hernia.; ; ; Signed by; Dayne Paris MD 02/15/2016 02:35 P; Outcome: 17:39 CT Study completed. Property :Personal belongings accompany Pt. ck1 18:10 Decision to Hospitalize by Provider. sd1 19:35 Discharge Assessment: patient administered narcotics - no. kas2 22:13 The following High Risk Discharge criteria are identified: None. Admitted to PCU kas2 accompanied by nurse, accompanied by tech, via stretcher, on monitor, with chart. Condition: good Condition: stable Condition: improved. 22:28 Patient left the ED. kas2 Signatures: Dispatcher [employer] EDMS Erin Laurent MD MD sd1 Anabella Otero, Fire Assistant Unit lbd Angelito Ritchie,RN RN po Zayda Mcclelland, Reg Reg Chanda MerinoRN RN ck1 Oma Fernandes Jordain, OCCUP THERAPIST OCCUP THERAPIST Shreya Hester,RN RN kas2 Corrections: (The following items were deleted from the chart) 13:01 12:51 DRUG EVAL TOXICOLOGY ED ONLY+LAB sent. ck1 EDMS 16:45 16:44 Reassessment: Patient appears in no apparent distress at this time. Patient ck1 denies pain at this time. ck1 Chart Complete MTDD
--- NOTE | 2016-02-17 23:29 | EDDOCDS ---
Physician Documentation [facility] Name: Jake Butcher Age: 50 yrs Sex: Male : 1965 Arrival Date: 02/15/2016 Time: 12:26 Bed 1 Private MD: Abner Byrd Disposition: 02/15/16 18:10 Hospitalization ordered by Peri Naranjo for Inpatient Admission. Preliminary diagnosis is Hypotension - resolved. - Bed requested for PCU. - Status is Inpatient Admission. kas2 - Condition is Stable. - Problem is new. - Symptoms have improved. Historical: - Allergies: No known drug Allergies; - Home Meds: 1. gabapentin 300 mg Oral cap 1 cap 3 times per day 2. Melville 7.5-325 mg Oral tab 1 tab every 6 hours 3. Mobic 15 mg oral tab 1 tab once daily 4. tizanidine 4 mg oral cap 2 caps every 8 hours 5. Seroquel 25 mg Oral tab 1 tab daily 6. rizatriptan 5 mg oral tab prn 7. metformin 500 mg Oral tr24 1 tab once daily 8. hydrochlorothiazide 25 mg Oral tab 1 tab once daily 9. citalopram 40 mg Oral tab 1 tab once daily 10. Lipitor 40 mg Oral tab 1 tab once daily 11. lisinopril 5 mg Oral tab 1 tab once daily 12. Protonix 40 mg oral TbEC 1 tab once daily 13. aspirin 81 mg Oral tab 1 tab once daily - PMHx: Chronic Back pain; Depression; Diabetes - NIDDM: controlled; Hypercholesterolemia; Hypertension; - PSHx: left ankle ORIF; Vasectomy; - Social history: Smoking status: Patient states former smoker of tobacco. No barriers to communication noted, The patient speaks fluent [place], Speaks appropriately for age. - Family history: Not pertinent. - : The pt / caregiver states he / she is not on anticoagulants. Home medication list is obtained from the patient. - Exposure Risk Screening:: None identified. Vital Signs: 02/14 12:15 BP 135 / 63 (auto/); ck1 12:16 Pulse 91 MON; Pulse Ox 99% ; ck1 12:36 BP 97 / 56; Pulse 56; Resp 20; Temp 97.4; Pulse Ox 96% ; Weight 170.55 kg / 376 lbs; jlf Height 5 ft. 11 in. (180.34 cm); 12:45 BP 93 / 54 (auto/); ck1 12:45 Pulse 57 MON; Pulse Ox 97% ; ck1 13:00 BP 94 / 52 (auto/); ck1 13:00 Pulse 59 MON; Pulse Ox 98% ; ck1 13:15 BP 99 / 61 (auto/); ck1 13:15 Pulse 56 MON; Pulse Ox 96% ; ck1 13:30 BP 104 / 59 (auto/); ck1 13:30 Pulse 56 MON; Pulse Ox 95% ; ck1 13:45 BP 107 / 64 (auto/); ck1 13:45 Pulse 56 MON; Pulse Ox 95% ; ck1 14:00 BP 101 / 51 (auto/); ck1 14:00 Pulse 57 MON; Pulse Ox 93% ; ck1 14:15 BP 99 / 54 (auto/); ck1 14:15 Pulse 58 MON; Pulse Ox 96% ; ck1 14:30 BP 100 / 57 (auto/); ck1 14:30 Pulse 59 MON; Pulse Ox 95% ; ck1 14:45 BP 103 / 55 (auto/); ck1 14:45 Pulse 55 MON; Pulse Ox 95% ; ck1 15:00 BP 105 / 55 (auto/); ck1 15:00 Pulse 55 MON; Pulse Ox 95% ; ck1 15:15 BP 114 / 56 (auto/); ck1 15:15 Pulse 54 MON; Pulse Ox 95% ; ck1 15:30 BP 115 / 59 (auto/); ck1 15:30 Pulse 56 MON; Pulse Ox 94% ; ck1 15:45 BP 118 / 67 (auto/); ck1 15:45 Pulse 56 MON; Pulse Ox 95% ; ck1 16:00 BP 131 / 71 (auto/); ck1 16:00 Pulse 57 MON; Pulse Ox 96% ; ck1 16:15 BP 128 / 68 (auto/); ck1 16:15 Pulse 56 MON; Pulse Ox 96% ; ck1 16:30 BP 140 / 74 (auto/); ck1 16:30 Pulse 57 MON; Pulse Ox 96% ; ck1 16:45 Pulse 57 MON; Pulse Ox 96% ; ck1 16:45 BP 127 / 66 (auto/); ck1 16:48 Resp 18; Temp 95.8(O); ck1 17:00 BP 121 / 63 (auto/); ck1 17:00 Pulse 56 MON; Pulse Ox 96% ; ck1 17:15 BP 133 / 62 (auto/); ck1 17:15 Pulse 57 MON; Pulse Ox 96% ; ck1 17:30 BP 135 / 65 (auto/); ck1 17:30 Pulse 56 MON; Pulse Ox 97% ; ck1 17:45 BP 142 / 74 (auto/); ck1 17:45 Pulse 56 MON; Pulse Ox 96% ; ck1 18:00 BP 135 / 68 (auto/); ck1 18:00 Pulse 57 MON; Pulse Ox 97% ; ck1 18:15 BP 135 / 70 (auto/); ck1 18:15 Pulse 58 MON; Pulse Ox 97% ; ck1 18:30 BP 136 / 76 (auto/); kas2 18:30 Pulse 56 MON; Pulse Ox 97% ; kas2 18:45 BP 124 / 61 (auto/); kas2 18:45 Pulse 58 MON; Pulse Ox 97% ; kas2 19:00 BP 121 / 60 (auto/); kas2 19:00 Pulse 57 MON; Pulse Ox 98% ; kas2 19:15 BP 123 / 59 (auto/); kas2 19:15 Pulse 57 MON; Pulse Ox 98% ; kas2 19:30 BP 127 / 64 (auto/); kas2 19:30 Pulse 58 MON; Pulse Ox 98% ; kas2 19:35 BP 127 / 64; Pulse 57; Resp 18; Temp 98.1(O); Pulse Ox 98% ; Pain 0/10; kas2 19:45 BP 133 / 69 (auto/); kas2 19:45 Pulse 57 MON; Pulse Ox 99% ; kas2 20:00 BP 129 / 61 (auto/); kas2 20:00 Pulse 57 MON; Pulse Ox 99% ; kas2 20:15 BP 137 / 69 (auto/); kas2 20:15 Pulse 60 MON; Pulse Ox 98% ; kas2 20:30 BP 148 / 67 (auto/); kas2 20:30 Pulse 64 MON; Pulse Ox 98% ; kas2 20:45 BP 116 / 57 (auto/); kas2 20:45 Pulse 60 MON; Pulse Ox 99% ; kas2 21:00 BP 127 / 67 (auto/); kas2 21:00 Pulse 59 MON; Pulse Ox 99% ; kas2 21:15 BP 128 / 70 (auto/); kas2 21:15 Pulse 58 MON; Pulse Ox 98% ; kas2 21:30 BP 136 / 72 (auto/); kas2 21:30 Pulse 61 MON; Pulse Ox 98% ; kas2 21:38 BP 18 / ???; Temp 97.9(O); Pain 0/10; kas2 21:45 BP 114 / 57 (auto/); kas2 21:45 Pulse 61 MON; Pulse Ox 97% ; kas2 22:00 BP 129 / 61 (auto/); kas2 22:00 Pulse 63 MON; Pulse Ox 96% ; kas2 12:36 Body Mass Index 52.44 (170.55 kg, 180.34 cm) [facility] MDM: 12:36 [facility]/Pulse Ox/q 15 min VS ordered. sd1 12:36 Accucheck ordered. sd1 12:36 IV Saline Lock ordered. sd1 12:36 Oxygen at 4L/Min NC or Home dosage ordered. sd1 12:36 Rhythm Strip to chart ordered. sd1 12:36 -Blood Culture (Adults Only), peripheral from different site, or from device/port/PICC sd1 etc. if present ordered. 12:36 NS 0.9% 1000 ml IV at bolus once ordered. sd1 12:37 CBC with Diff Ordered. EDMS 12:37 Cardiac Injury Profile Ordered. EDMS 12:37 Liver Profile Ordered. EDMS 12:37 MED Profile Ordered. EDMS 12:37 Thyroid Stimulating Hormone Ordered. EDMS 12:37 Troponin Ordered. EDMS 12:37 Lactic Acid (Ramsay tube on ice) Ordered. EDMS 12:37 -Blood Culture Ordered. EDMS 12:37 PT/INR Ordered. EDMS 12:37 Type & Screen Ordered. EDMS 12:37 ECG WITH READING ER PHYS+CARDIAG ordered. EDMS 12:45 -Blood Culture (Adults Only), peripheral from different site, or from device/port/PICC lbd etc. if present complete. 12:48 BLOOD CULTURES Ordered. EDMS 13:00 Drug Eval Toxicology ED Only Ordered. EDMS 13:03 Fingerstick Blood Sugar Ordered. EDMS 13:07 PT/INR Reviewed. sd1 13:07 Type & Screen Reviewed. sd1 13:07 Fingerstick Blood Sugar Reviewed. sd1 13:19 BED REQUEST+ADM ordered. EDMS 13:46 CBC with Diff Reviewed. sd1 13:46 Liver Profile Reviewed. sd1 13:46 MED Profile Reviewed. sd1 13:46 Cardiac Injury Profile Reviewed. sd1 13:46 Thyroid Stimulating Hormone Reviewed. sd1 13:46 Troponin Reviewed. sd1 13:46 Lactic Acid (Ramsay tube on ice) Reviewed. sd1 13:49 CT ABD & PELVIS: IV Contrast Only Ordered. EDMS 14:25 Type & Screen Reviewed. sd1 15:47 Hepatitis Profile Ordered. EDMS 16:08 Financial registration complete. zo 16:11 [facility] Payment Agreement was scanned into [employer] and attached to record. zo 18:41 Admission / Observation Status ordered. EDMS 18:41 ELECTROCARDIOGRAM ADULT ordered. EDMS 18:41 NO ADDED SALT DIET ordered. EDMS 18:41 CARDIAC MARKER PANEL Ordered. EDMS 18:48 MAGNESIUM LEVEL Ordered. EDMS 18:54 REGULAR+DIET ordered. EDMS 19:32 BASIC METABOLIC PROFILE Ordered. EDMS 19:32 CBC WITH DIFFERENTIAL Ordered. EDMS 19:33 CARDIAC MARKER PANEL Ordered. EDMS 19:33 CARDIAC MARKER PANEL Ordered. EDMS 21:00 HEPARIN INDUCED PLATELET MITCHELL Ordered. EDMS 21:00 PATHOLOGIST REVIEW COMPREHENSI Ordered. EDMS 21:01 IONIZED CALCIUM Ordered. EDMS 21:01 CARDIAC RISK PROFILE Ordered. EDMS 02/15 10:10 T-Sheet-- Draft Copy was scanned into [employer] and attached to record. Point of Care Testing: Blood Glucose: 02/14 13:00 Blood Glucose: 91 mg/dL; ck1 Ranges: Administered Medications: 12:39 Drug: NS 0.9% 1000 ml [sodium chloride 0.9 % intravenous solution] Route: IV; Rate: ck1 bolus; Site: right antecubital; 15:28 Follow up: IV Status: Completed infusion ck1 Signatures: Dispatcher [employer] EDID Erin Laurent MD MD sd1 Anabella Otero, Director Pharmacovigilance Unit Humaira Ortiz RN RN daq Barnhardt, Gloria, Reg Reg Chanda Merino RN RN ck1 Oma Fernandes Kim, RN RN kas2 The chart was reviewed and I authenticate all verbal orders and agree with the evaluation and treatment provided.Corrections: (The following items were deleted from the chart) 13:01 12:37 DRUG EVAL TOXICOLOGY ED ONLY+LAB ordered. EDMS EDMS 18:47 18:41 MAGNESIUM LEVEL ordered. EDMS EDMS Attachments: 16:11 [facility] Payment Agreement zo 02/15 10:10 T-Sheet-- Draft Copy gb Chart Complete MTDD
== END 2016-02-17 15:47 | disposition home or self-care (01) ==
LOC: M ED 12:26 → M ED INP 18:42 → M PCU 22:27
PROVIDERS: ADMIT General Practice; ATTEND Internal Medicine
DX: I95.1 Orthostatic hypotension (principal); T46.5X1A Poisoning by other antihypertensive drugs, accidental (unintentional), initial encounter; I10 Essential (primary) hypertension; E11.9 Type 2 diabetes mellitus without complications; M54.5 Low back pain; E78.4 Other hyperlipidemia; E78.00 Pure hypercholesterolemia, unspecified; F32.9 Major depressive disorder, single episode, unspecified; G47.00 Insomnia, unspecified; D69.6 Thrombocytopenia, unspecified; Z79.82 Long term (current) use of aspirin; Z79.899 Other long term (current) drug therapy; Z87.891 Personal history of nicotine dependence
CPT/HCPCS: 36415; 74177; 76700; 80048; 80053; 80061; 80076; 80306; 82330; 82550; 82553; 83605; 83735; 84443; 85025; 85027; 85610; 85652; 86022; 86140; 86705; 86709; 86803; 86850; 86900; 86901; 87040; 87340; 93005; 93041; 93975; 96360; 96361; 99285; J0610; J3475; Q9967

== ENCOUNTER → 2016-02-22 | Outpatient (REF) | payer OTHER ==
[~2016-02-22] MED LIST: AMBI5TAB PO; ASPI1TAB PO; ATOR40TA PO; CITA40TA4 PO; GABA300C3 PO; HYDR25TAB PO; LISI-542 PO; METF500T4 PO; MOBI15TA PO; PANT40TA2 PO; RIZA5TAB PO; SERO1TAB3 PO; TIZA4CAP3 PO
[2016-02-22 13:09] LABS: AMPHETAMINES URINE REFLEX NEGATIVE (NEGATIVE); BARBITURATES URINE REFLEX NEGATIVE (NEGATIVE); BENZODIAZEPINES URINE REFLEX NEGATIVE (NEGATIVE); COCAINE METABOLITE URINE REFLE NEGATIVE (NEGATIVE); CONTROL LINE INT CTR LINE PRESENT; INR 1.04; METHADONE URINE REFLEX NEGATIVE (NEGATIVE); OPIATES URINE REFLEX NEGATIVE (NEGATIVE); TRICYCLIC ANTIDEPRESS UR REFL NEGATIVE (NEGATIVE)
[2016-02-22 13:38] LABS: EOS # 0.2 K/mm3 (0.0-0.50); EOS % 4.1 % (0.0-3.0); LARGE UNSTAINED CELL # 0.1 K/mm3 (0.0-0.4); LARGE UNSTAINED CELL % 1.2 % (0.0-4.0); LYMPH # 1.4 K/mm3 (1.5-4.5); LYMPH % 25.8 % (24.0-44.0); MEAN CORPUSCULAR HEMOGLOBIN 30.7 pg (27.0-33.0); MEAN CORPUSCULAR HGB CONC 33.5 g/dl (32.0-36.5); MEAN CORPUSCULAR VOLUME 91.5 fl (80.0-96.0); MONO # 0.4 K/mm3 (0.0-0.8); MONO % 7.3 % (0.0-5.0); NEUTROPHILS # 3.1 K/mm3 (1.8-7.7); NEUTROPHILS % 60.6 % (36.0-66.0); RED CELL DISTRIBUTION WIDTH 14.6 % (11.5-14.5); WHITE BLOOD COUNT 5.1 K/mm3 (4.0-10.0)
[2016-02-22 13:43] LABS: PLATELET COUNT, AUTOMATED 96 k/mm3 (150-450)
[2016-02-22 13:49] LABS: ALBUMIN 3.2 GM/DL (3.2-5.2); ALKALINE PHOSPHATASE 101 U/L (45-117); ALT/SGPT 81 U/L (12-78); ANION GAP 8 MEQ/L (8-16); AST/SGOT 85 U/L (15-37); BILIRUBIN,TOTAL 0.9 MG/DL (0.2-1.0); BLOOD UREA NITROGEN 13 MG/DL (7-18); CALCIUM LEVEL 8.4 MG/DL (8.5-10.1); CARBON DIOXIDE LEVEL 28 MEQ/L (21-32); CHLORIDE LEVEL 107 MEQ/L (98-107); CREATININE FOR GFR 0.96 MG/DL (0.70-1.30); GLOMERULAR FILTRATION RATE > 60.0 (>56); GLUCOSE, FASTING 102 MG/DL (70-105); POTASSIUM SERUM 4.1 MEQ/L (3.5-5.1); SODIUM LEVEL 143 MEQ/L (136-145); TOTAL PROTEIN 6.1 GM/DL (6.4-8.2)
== END ==
LOC: M SFHCPLAZ 10:12
PROVIDERS: ATTEND Family Medicine
DX: K75.9 Inflammatory liver disease, unspecified (principal); R53.83 Other fatigue

== ENCOUNTER → 2016-03-10 | Outpatient (REF) | payer OTHER | LOC: M LABDRAW1 12:52 | PROVIDERS: ATTEND Family Medicine | DX: G93.41 Metabolic encephalopathy (principal) ==

== ENCOUNTER → 2016-03-21 | Day surgery (SDC) | payer OTHER ==
[~2016-03-21] VITALS: Ht 180.3 cm; Wt 175.5 kg
[~2016-03-21] MED LIST changes: +CARA1TAB2 PO; +LACT10SO29 PO; +LIDOCAINE 2% INJ 100 MG/5 ML SDV (FOR ANES.) As Ordered ONE; +LR 1,000 ML IV SCH; +MIDAZOLAM INJ 2 MG/2 ML VIAL (J2250) As Ordered ONE; +OXYC1SOL PO; +PROPOFOL 200 MG/20 ML VIAL As Ordered ONE
--- NOTE | 2016-03-21 12:36 | ROOR ---
Patient Name: Jake Butcher Procedure Date: 03/21/2016 11:31 AM Date of : 1965 Age: 50 Room: [facility] Gender: Male Note Status: Finalized Procedure: Upper GI endoscopy Indications: Dysphagia, Suspected esophageal reflux Providers: Logan Gutierres Jr, MD Referring MD: Trent Smith Do Requesting Provider: Medicines: Propofol per Anesthesia Complications: No immediate complications. Procedure: Pre-Anesthesia Assessment: - Prior to the procedure, a History and Physical was performed, and patient medications and allergies were reviewed. The patient is competent. The risks and benefits of the procedure and the sedation options and risks were discussed with the patient. All questions were answered and informed consent was obtained. Patient identification and proposed procedure were verified by the physician and the nurse in the pre-procedure area and in the procedure room. Mental Status Examination: alert and oriented. Airway Examination: normal oropharyngeal airway and neck mobility. Respiratory Examination: clear to auscultation. CV Examination: normal. ASA Grade Assessment: III - A patient with severe systemic disease. After reviewing the risks and benefits, the patient was deemed in satisfactory condition to undergo the procedure. The anesthesia plan was to use moderate sedation / analgesia (conscious sedation). Immediately prior to administration of medications, the patient was re-assessed for adequacy to receive sedatives. The heart rate, respiratory rate, oxygen saturations, blood pressure, adequacy of pulmonary ventilation, and response to care were monitored throughout the procedure. The physical status of the patient was re-assessed after the procedure. The Endoscope was introduced through the mouth, and advanced to the second part of duodenum. The upper GI endoscopy was accomplished without difficulty. The patient tolerated the procedure well. Findings: The upper third of the esophagus, middle third of the esophagus and lower third of the esophagus were normal. Patchy moderate inflammation characterized by congestion (edema), erythema and friability was found in the prepyloric region of the stomach. Biopsies were taken with a cold forceps for histology. Patchy mild inflammation characterized by congestion (edema), erythema and friability was found in the gastric fundus and in the gastric body. The duodenal bulb, first portion of the duodenum and second portion of the duodenum were normal. The gastroesophageal junction and cardia were normal. Impression: - Normal upper third of esophagus, middle third of esophagus and lower third of esophagus. - Gastritis. Biopsied. - Gastritis. - Normal duodenal bulb, first portion of the duodenum and second portion of the duodenum. - Normal gastroesophageal junction and cardia. Recommendation: - Discharge patient to home (ambulatory). - Return to my office in 1 week. Logan Gutierres MD Logan Gutierres Jr, MD 03/21/2016 12:35:48 PM This report has been signed electronically. Number of Addenda: 0 Note Initiated On: 03/21/2016 11:31 AM Estimated Blood Loss: Estimated blood loss: none.
[2016-03-21 12:45] VITALS: BP 124/58
== END | disposition home or self-care (01) ==
LOC: M SDC 09:10
PROVIDERS: ATTEND Surgery
DX: R13.10 Dysphagia, unspecified (principal); K29.70 Gastritis, unspecified, without bleeding; K76.6 Portal hypertension; K21.9 Gastro-esophageal reflux disease without esophagitis; E11.9 Type 2 diabetes mellitus without complications; E78.00 Pure hypercholesterolemia, unspecified; F41.9 Anxiety disorder, unspecified; F32.9 Major depressive disorder, single episode, unspecified; E66.9 Obesity, unspecified; R94.31 Abnormal electrocardiogram [ECG] [EKG]; I20.9 Angina pectoris, unspecified; R07.9 Chest pain, unspecified; I10 Essential (primary) hypertension; K76.9 Liver disease, unspecified; R29.898 Other symptoms and signs involving the musculoskeletal system; G89.29 Other chronic pain; M54.9 Dorsalgia, unspecified; G47.30 Sleep apnea, unspecified; R06.83 Snoring; M12.9 Arthropathy, unspecified; G43.909 Migraine, unspecified, not intractable, without status migrainosus; N40.0 Benign prostatic hyperplasia without lower urinary tract symptoms; Z79.899 Other long term (current) drug therapy; Z79.82 Long term (current) use of aspirin
CPT/HCPCS: 43239; 88305; 88313; J2250

== ENCOUNTER → 2016-05-30 | Outpatient (REF) | payer OTHER ==
[~2016-05-30] MED LIST changes: +GABA-282 PO; -GABA300C3 PO; -LIDOCAINE 2% INJ 100 MG/5 ML SDV (FOR ANES.) As Ordered ONE; -LR 1,000 ML IV SCH; -MIDAZOLAM INJ 2 MG/2 ML VIAL (J2250) As Ordered ONE; -PROPOFOL 200 MG/20 ML VIAL As Ordered ONE
== END ==
LOC: M SFHCPLAZ 11:18
PROVIDERS: ATTEND Family Medicine
DX: F32.9 Major depressive disorder, single episode, unspecified (principal)

== ENCOUNTER 2016-06-09 14:05 | Emergency (ER) | payer OTHER ==
[~2016-06-09] VITALS: Ht 180.3 cm; Wt 170.6 kg
[2016-06-09] MEDS ORDERED: MORPHINE 4 MG/ML 1ML SYRINGE IV PRN (14:45)
[2016-06-09 15:06] LABS: BASO % 0.6 % (0.0-1.0); EOS # 0.3 K/mm3 (0.0-0.50); EOS % 5.8 % (0.0-3.0); LARGE UNSTAINED CELL # 0.1 K/mm3 (0.0-0.4); LARGE UNSTAINED CELL % 1.5 % (0.0-4.0); LYMPH # 1.6 K/mm3 (1.5-4.5); LYMPH % 28.7 % (24.0-44.0); MEAN CORPUSCULAR HEMOGLOBIN 30.8 pg (27.0-33.0); MEAN CORPUSCULAR HGB CONC 33.6 g/dl (32.0-36.5); MEAN CORPUSCULAR VOLUME 91.8 fl (80.0-96.0); MONO # 0.4 K/mm3 (0.0-0.8); MONO % 6.9 % (0.0-5.0); NEUTROPHILS # 2.9 K/mm3 (1.8-7.7); NEUTROPHILS % 56.6 % (36.0-66.0); PLATELET COUNT, AUTOMATED 105 k/mm3 (150-450); RED CELL DISTRIBUTION WIDTH 13.8 % (11.5-14.5); WHITE BLOOD COUNT 5.2 K/mm3 (4.0-10.0)
[2016-06-09 15:22] LABS: INR 1.04
[2016-06-09 15:27] LABS: ALBUMIN 3.4 GM/DL (3.2-5.2); ALKALINE PHOSPHATASE 115 U/L (45-117); ALT/SGPT 49 U/L (12-78); AMYLASE 78 U/L (25-115); ANION GAP 5 MEQ/L (8-16); AST/SGOT 59 U/L (15-37); BILIRUBIN,DIRECT 0.5 MG/DL (0.0-0.2); BILIRUBIN,TOTAL 1.5 MG/DL (0.2-1.0); BLOOD UREA NITROGEN 13 MG/DL (7-18); CARBON DIOXIDE LEVEL 31 MEQ/L (21-32); CHLORIDE LEVEL 109 MEQ/L (98-107); CREATININE FOR GFR 0.97 MG/DL (0.70-1.30); GLOMERULAR FILTRATION RATE > 60.0 (>56); GLUCOSE, FASTING 61 MG/DL (70-105); POTASSIUM SERUM 4.2 MEQ/L (3.5-5.1); SODIUM LEVEL 145 MEQ/L (136-145); TOTAL PROTEIN 6.5 GM/DL (6.4-8.2)
[2016-06-09] MEDS ORDERED: CYCL10TA PO (16:01)
[2016-06-09 16:09] VITALS: BP 143/71
--- NOTE | 2016-06-10 07:35 | REP ---
CT ABDOMEN: HISTORY: Right renal colic. COMPARISON: 02/15/2016, a contrast-enhanced exam which showed no acute disease. The lung bases are clear and unchanged. Limited evaluation of the solid intraabdominal organs and gallbladder show no gross abnormalities. The spleen is full sized. There are no choleliths. Limited evaluation of the pancreas and adrenal glands show no gross abnormalities. There is no nephroureterolithiasis, hydronephrosis or hydroureter. There are no urinary bladder calcifications. Limited evaluation of the intraabdominal and intrapelvic bowel loops and their mesenteries show no gross abnormalities or significant changes from the prior exam. There is no free fluid or free air seen in the abdomen or pelvis. Multiple borderline sized lymph nodes are seen in the retroperitoneum near the celiac axis. These are unchanged. These are nonspecific. Bone window technique throughout the exam shows the osseous structures to be within normal limits for the patient's age. There are spinal degenerative changes. IMPRESSION: 1. No nephroureterolithiasis, hydronephrosis, or hydroureter. 2. Full-sized spleen. Correlate clinically. 3. Evidence of retroperitoneal adenopathy which needs close clinical correlation and followup. Neoplastic change cannot be ruled out. 4. Other findings as described above. Signed by Monty Martínez DO 06/10/2016 09:20 A
--- NOTE | 2016-06-12 08:44 | ED PDOC ---
Post-Departure Follow-Up radiology report faxed to Erin Mayers MD June 12, 2016 08:44
== END 2016-06-09 16:10 | disposition home or self-care (01) ==
LOC: M ED 15:07
DX: S39.011A Strain of muscle, fascia and tendon of abdomen, initial encounter (principal); X58.XXXA Exposure to other specified factors, initial encounter; Y92.89 Other specified places as the place of occurrence of the external cause; Y93.89 Activity, other specified; Y99.9 Unspecified external cause status

== ENCOUNTER → 2016-07-18 | Outpatient (CLI) | payer OTHER ==
[~2016-07-18] MED LIST changes: +CYCL10TA PO
[2016-07-18 13:11] LABS: ALBUMIN 3.2 GM/DL (3.2-5.2); ALKALINE PHOSPHATASE 125 U/L (45-117); ALT/SGPT 44 U/L (12-78); ANION GAP 6 MEQ/L (8-16); AST/SGOT 53 U/L (15-37); BILIRUBIN,TOTAL 0.9 MG/DL (0.2-1.0); BLOOD UREA NITROGEN 15 MG/DL (7-18); CALCIUM LEVEL 8.7 MG/DL (8.5-10.1); CARBON DIOXIDE LEVEL 28 MEQ/L (21-32); CHLORIDE LEVEL 109 MEQ/L (98-107); CREATININE FOR GFR 0.91 MG/DL (0.70-1.30); GAMMA GLUTAMYLTRANSPEPTIDASE 86 U/L (15-85); GLOMERULAR FILTRATION RATE > 60.0 (>56); GLUCOSE, FASTING 127 MG/DL (70-105); POTASSIUM SERUM 4.3 MEQ/L (3.5-5.1); SODIUM LEVEL 143 MEQ/L (136-145); TOTAL PROTEIN 6.1 GM/DL (6.4-8.2)
--- NOTE | 2016-07-19 01:21 | REP ---
Clinical: Pleurodynia . Comparison: 01/07/2016 . Technique: PA and lateral. Findings: The mediastinum and cardiac silhouette are normal. The lung flynn are clear and without acute consolidation, effusion, or pneumothorax. The skeletal structures are intact and normal. Impression: 1. No acute cardiopulmonary process. Signed by Dayne Paris MD 07/19/2016 01:13 A
--- NOTE | 2016-07-19 01:31 | REP ---
Clinical: Pleurodynia. Technique: Frontal view of the chest with multiple views of the bilateral hemithoraces. Findings: Frontal view of the chest demonstrates no acute cardiopulmonary process. Multiple views of the right and left hemithorax demonstrates no obvious acute rib fracture or pathology. Impression: Normal bilateral rib series Signed by Dayne Paris MD 07/19/2016 01:23 A
== END ==
LOC: M LAB 10:52
PROVIDERS: ATTEND Family Medicine
DX: R07.81 Pleurodynia (principal)

== ENCOUNTER → 2016-07-28 | Outpatient (CLI) | payer OTHER ==
[~2016-07-28] MED LIST changes: +GASTROGRAFIN SOLUTION 30ML (Q9963) As Ordered ONE; +ISOVUE-370 76% 100ML VIAL (Q9967) As Ordered ONE
--- NOTE | 2016-07-28 14:27 | REP ---
CT ABDOMEN/PELVIS WITH AND WITHOUT CONTRAST: TECHNIQUE: Axial noncontrast images through the abdomen followed by contrast-enhanced images through the abdomen and pelvis using 100 mL Isovue 370 intravenous contrast material, with coronal and sagittal reformations. Comparison made with prior study of 06/09/2016 and 02/15/2016. Visualized lung bases are clear. Liver demonstrates microlobulations along the surface suggesting cirrhosis. Spleen is enlarged with a length of 19.2 cm. Adrenals, pancreas, and kidneys are unremarkable in appearance. There is no abdominal aortic aneurysm. There are again a few mildly prominent lymph nodes in the portal region, stable. Portal vein is significantly enlarged, compatible with portal hypertension with a maximum diameter 2.5 cm. Splenic vein is also enlarged. There is recanalization of the umbilical vein. No bowel thickening is seen. No pelvic mass is seen. Urinary bladder is mildly distended and not optimally evaluated. There appear to be sigmoid diverticula present without acute diverticulitis. There are degenerative changes of the spine. IMPRESSION: Findings suggesting cirrhosis. Findings consistent with portal hypertension with enlarged splenic and portal veins, recanalization of the umbilical vein, and moderate splenomegaly. Mildly prominent portal lymph nodes are stable. There is sigmoid diverticulosis without acute diverticulitis. Signed by El Ramsay MD 07/28/2016 03:29 P
== END ==
LOC: M RAD 10:54
PROVIDERS: ATTEND Family Medicine
DX: R59.0 Localized enlarged lymph nodes (principal); K57.30 Diverticulosis of large intestine without perforation or abscess without bleeding

== ENCOUNTER → 2016-10-23 | Outpatient (CLI) | payer OTHER ==
[~2016-10-23] MED LIST changes: -ATOR40TA PO; +ATOR40TA75 PO; -CARA1TAB2 PO; +CARA1TAB6 PO; -GASTROGRAFIN SOLUTION 30ML (Q9963) As Ordered ONE; -ISOVUE-370 76% 100ML VIAL (Q9967) As Ordered ONE; -OXYC1SOL PO; +OXYC1SOL3 PO
== END ==
LOC: M LAB 12:27
PROVIDERS: ATTEND Student in an Organized Health Care Education/Training Program
DX: Z00.00 Encounter for general adult medical examination without abnormal findings (principal)

== ENCOUNTER → 2016-12-21 | Outpatient (CLI) | payer OTHER ==
[2016-12-21 12:38] LABS: BASO % 0.8 % (0.0-1.0); EOS # 0.2 10^3/uL (0.0-0.50); EOS % 5.8 % (0.0-3.0); IMMATURE GRANULOCYTE % 0.3 % (0-0); LYMPH # 1.3 10^3/uL (1.5-4.5); LYMPH % 31.7 % (24.0-44.0); MEAN CORPUSCULAR HEMOGLOBIN 31.3 pg (27.0-33.0); MEAN CORPUSCULAR HGB CONC 34.4 g/dl (32.0-36.5); MEAN CORPUSCULAR VOLUME 91.2 fl (80.0-96.0); MONO # 0.5 10^3/uL (0.0-0.8); MONO % 11.8 % (0.0-5.0); NEUTROPHILS % 49.6 % (36.0-66.0); PLATELET COUNT, AUTOMATED 111 10^3/uL (150-450); RED CELL DISTRIBUTION WIDTH 13.2 % (11.5-14.5)
[2016-12-21 13:25] LABS: ALBUMIN 3.5 GM/DL (3.2-5.2); ALKALINE PHOSPHATASE 87 U/L (45-117); ALT/SGPT 37 U/L (12-78); ANION GAP 6 MEQ/L (8-16); AST/SGOT 44 U/L (7-37); BILIRUBIN,TOTAL 1.4 MG/DL (0.2-1.0); BLOOD UREA NITROGEN 13 MG/DL (7-18); CALCIUM LEVEL 8.9 MG/DL (8.5-10.1); CARBON DIOXIDE LEVEL 28 MEQ/L (21-32); CHLORIDE LEVEL 110 MEQ/L (98-107); CREATININE FOR GFR 0.83 MG/DL (0.70-1.30); FERRITIN 264 NG/ML (26-388); GLOMERULAR FILTRATION RATE > 60.0 (>56); GLUCOSE, FASTING 89 MG/DL (70-105); PERCENT SATURATION 65.7 % (19.7-50.0); PHOSPHORUS LEVEL 2.4 MG/DL (2.5-4.9); SODIUM LEVEL 144 MEQ/L (136-145); TOTAL IRON BINDING CAPACITY 204 UG/DL (250-450); TOTAL PROTEIN 6.2 GM/DL (6.4-8.2)
[2016-12-21 13:27] LABS: VITAMIN B12 LEVEL 543 PG/ML (247-911)
[2016-12-22 11:28] LABS: PRETREATED FOLATE FOR RBCFOL 8.9 NG/ML
== END ==
LOC: M LAB 11:41
PROVIDERS: ATTEND Surgery
DX: K91.2 Postsurgical malabsorption, not elsewhere classified (principal)

== ENCOUNTER 2017-02-28 10:50 | Emergency (ER) | payer OTHER, SELFPAY | END 2017-02-28 11:30 | disposition home or self-care (01) | LOC: M ED 10:50 | DX: M51.37 Other intervertebral disc degeneration, lumbosacral region (principal); M50.30 Other cervical disc degeneration, unspecified cervical region; G62.9 Polyneuropathy, unspecified; Z87.891 Personal history of nicotine dependence | CPT/HCPCS: 99282 ==

== ENCOUNTER → 2017-03-31 | Outpatient (CLI) | payer OTHER | LOC: M RAD 10:24 | DX: M48.061 Spinal stenosis, lumbar region without neurogenic claudication (principal); M51.27 Other intervertebral disc displacement, lumbosacral region | CPT/HCPCS: 72148 ==

== ENCOUNTER → 2017-04-09 | Outpatient (CLI) | payer OTHER ==
[2017-04-09 12:01] LABS: TESTOSTERONE 673 NG/DL (241-827)
== END ==
LOC: M LAB 09:12
DX: N52.9 Male erectile dysfunction, unspecified (principal)
CPT/HCPCS: 84403

== ENCOUNTER 2017-05-10 11:39 | Emergency (ER) | payer OTHER ==
[2017-05-10 12:55] LABS: APPEARANCE, URINE CLOUDY (CLEAR); BACTERIA, URINE AUTO NEGATIVE (NEGATIVE); BILIRUBIN, URINE AUTO NEGATIVE (NEGATIVE); BLOOD, URINE BLOOD 3+ (NEGATIVE); COLOR, URINE AMBER (YELLOW); GLUCOSE, URINE (UA) AUTO NEGATIVE (NEGATIVE); KETONE, URINE AUTO NEGATIVE (NEGATIVE); LEUKOCYTE ESTERASE, URINE AUTO 3+ (NEGATIVE); MUCUS, URINE SMALL (NEGATIVE); NITRITE, URINE AUTO NEGATIVE (NEGATIVE); PROTEIN, URINE AUTO 1+ mg/dL (NEGATIVE); RBC, URINE AUTO TNTC /HPF (0-3); SPECIFIC GRAVITY URINE AUTO 1.014 (1.002-1.035); SQUAMOUS EPITHELIAL CELL UR AU 0 /HPF (0-6); WBC, URINE AUTO TNTC /HPF (0-3)
[2017-05-10] MEDS: KETOROLAC 30 MG/ML VIAL (J1885) IV (13:38)
[2017-05-10] MEDS: NS 1,000 ML IV (13:39)
[2017-05-10 13:48] LABS: BASO % 0.4 % (0.0-1.0); EOS # 0.2 10^3/uL (0.0-0.50); EOS % 3.8 % (0.0-3.0); HEMATOCRIT 37.4 % (42.0-52.0); HEMOGLOBIN 12.8 g/dl (13.5-17.5); IMMATURE GRANULOCYTE % 0.2 % (0-3.0); LYMPH # 1.2 10^3/uL (1.5-4.5); LYMPH % 27.7 % (24.0-44.0); MEAN CORPUSCULAR HEMOGLOBIN 30.9 pg (27.0-33.0); MEAN CORPUSCULAR HGB CONC 34.2 g/dl (32.0-36.5); MEAN CORPUSCULAR VOLUME 90.3 fl (80.0-96.0); MONO # 0.5 10^3/uL (0.0-0.8); NEUTROPHILS # 2.5 10^3/uL (1.8-7.7); NEUTROPHILS % 56.9 % (36.0-66.0); RED BLOOD COUNT 4.14 10^6/uL (4.30-6.10); RED CELL DISTRIBUTION WIDTH 13.3 % (11.5-14.5); WHITE BLOOD COUNT 4.5 10^3/uL (4.0-10.0)
[2017-05-10 13:50] LABS: PLATELET COUNT, AUTOMATED 89 10^3/uL (150-450); POS COUNT POS FLAG
[2017-05-10 13:51] LABS: IMMATURE PLATELET FRACTION % 2.1 % (0.0-10.9); PLATELET F 86
[2017-05-10 14:16] LABS: ALBUMIN 3.4 GM/DL (3.2-5.2); ALBUMIN/GLOBULIN RATIO 1.13 (1.00-1.93); ALKALINE PHOSPHATASE 115 U/L (45-117); ALT/SGPT 41 U/L (12-78); AMYLASE 70 U/L (25-115); ANION GAP 6 MEQ/L (8-16); AST/SGOT 59 U/L (7-37); BILIRUBIN,DIRECT 0.3 MG/DL (0.0-0.2); BILIRUBIN,TOTAL 0.9 MG/DL (0.2-1.0); BLOOD UREA NITROGEN 8 MG/DL (7-18); CALCIUM LEVEL 8.7 MG/DL (8.5-10.1); CARBON DIOXIDE LEVEL 28 MEQ/L (21-32); CHLORIDE LEVEL 109 MEQ/L (98-107); CREATININE FOR GFR 0.86 MG/DL (0.70-1.30); GLOMERULAR FILTRATION RATE > 60.0 (>56); GLUCOSE, FASTING 77 MG/DL (70-100); LIPASE 174 U/L (73-393); SODIUM LEVEL 143 MEQ/L (136-145); TOTAL PROTEIN 6.4 GM/DL (6.4-8.2)
[2017-05-10 14:32] LABS: INR 1.12; PROTHROMBIN TIME 14.6 SECONDS (12.4-14.5)
[2017-05-10 14:33] LABS: PARTIAL THROMBOPLASTIN TIME 31.5 SECONDS (26.8-37.9)
[2017-05-10] MEDS: BACTRIM 160MG/800MG DS TAB PO (14:56)
== END 2017-05-10 15:04 | disposition home or self-care (01) ==
LOC: M ED 11:39
DX: N30.01 Acute cystitis with hematuria (principal); K74.60 Unspecified cirrhosis of liver; D69.6 Thrombocytopenia, unspecified; R10.11 Right upper quadrant pain; R10.31 Right lower quadrant pain; Z79.899 Other long term (current) drug therapy
CPT/HCPCS: J1885

== ENCOUNTER 2017-07-27 13:30 | Outpatient (RCR) | payer OTHER | END 2017-08-04 | LOC: M PT 13:30 | DX: Z51.89 Encounter for other specified aftercare (principal); R10.9 Unspecified abdominal pain ==

== ENCOUNTER 2017-08-06 09:55 | Outpatient (RCR) | payer OTHER | END 2017-09-04 | LOC: M PT 09:55 | DX: Z51.89 Encounter for other specified aftercare (principal); R07.81 Pleurodynia ==

== ENCOUNTER → 2017-08-06 | Outpatient (CLI) | payer OTHER ==
[2017-08-06 10:13] LABS: BASO % 0.9 % (0.0-1.0); EOS # 0.2 10^3/uL (0.0-0.50); EOS % 4.5 % (0.0-3.0); HEMATOCRIT 41.6 % (42.0-52.0); HEMOGLOBIN 14.2 g/dl (13.5-17.5); IMMATURE GRANULOCYTE % 0.2 % (0-3.0); LYMPH # 1.4 10^3/uL (1.5-4.5); LYMPH % 30.8 % (24.0-44.0); MEAN CORPUSCULAR HEMOGLOBIN 30.9 pg (27.0-33.0); MEAN CORPUSCULAR HGB CONC 34.1 g/dl (32.0-36.5); MEAN CORPUSCULAR VOLUME 90.4 fl (80.0-96.0); MONO # 0.4 10^3/uL (0.0-0.8); MONO % 9.4 % (0.0-5.0); NEUTROPHILS # 2.4 10^3/uL (1.8-7.7); NEUTROPHILS % 54.2 % (36.0-66.0); PLATELET COUNT, AUTOMATED 101 10^3/uL (150-450); RED CELL DISTRIBUTION WIDTH 13.1 % (11.5-14.5); WHITE BLOOD COUNT 4.5 10^3/uL (4.0-10.0)
[2017-08-06 10:16] LABS: HEMATOCRIT 41.6 % (42.0-52.0)
[2017-08-06 10:31] LABS: ESTIMATED AVERAGE GLUCOSE 80 MG/DL (60-110); HEMOGLOBIN A1c 4.4 %
[2017-08-06 10:33] LABS: ALBUMIN 3.6 GM/DL (3.2-5.2); ALKALINE PHOSPHATASE 148 U/L (45-117); ALT/SGPT 38 U/L (12-78); ANION GAP 6 MEQ/L (8-16); AST/SGOT 53 U/L (7-37); BLOOD UREA NITROGEN 14 MG/DL (7-18); CALCIUM LEVEL 8.5 MG/DL (8.5-10.1); CARBON DIOXIDE LEVEL 28 MEQ/L (21-32); CHLORIDE LEVEL 110 MEQ/L (98-107); CREATININE FOR GFR 0.81 MG/DL (0.70-1.30); FERRITIN 141 NG/ML (26-388); GLOMERULAR FILTRATION RATE > 60.0 (>56); GLUCOSE, FASTING 87 MG/DL (70-100); IRON (FE) 125 UG/DL (65-175); MAGNESIUM LEVEL 2.1 MG/DL (1.8-2.4); PERCENT SATURATION 54.3 % (19.7-50.0); PHOSPHORUS LEVEL 3.3 MG/DL (2.5-4.9); POTASSIUM SERUM 4.3 MEQ/L (3.5-5.1); SODIUM LEVEL 144 MEQ/L (136-145); TOTAL IRON BINDING CAPACITY 230 UG/DL (250-450); TOTAL PROTEIN 6.6 GM/DL (6.4-8.2)
[2017-08-06 10:38] LABS: TOTAL 25(OH) VITAMIN D 16.9 NG/ML (30.0-100.0)
[2017-08-06 10:39] LABS: VITAMIN B12 LEVEL 423 PG/ML (247-911)
[2017-08-07 10:20] LABS: PRETREATED FOLATE FOR RBCFOL 11.7 NG/ML; RBC FOLATE 590.6 NG/ML (280-791)
== END ==
LOC: M LAB 09:42
DX: K91.2 Postsurgical malabsorption, not elsewhere classified (principal); E55.9 Vitamin D deficiency, unspecified; Z98.84 Bariatric surgery status
CPT/HCPCS: 83550

== ENCOUNTER → 2017-10-31 | Outpatient (CLI) | payer OTHER ==
[2017-10-31 15:48] LABS: TOTAL 25(OH) VITAMIN D 12.4 NG/ML (30.0-100.0)
[2017-10-31 15:48] LABS: VITAMIN B12 LEVEL 340 PG/ML (247-911)
== END ==
LOC: M LAB 10:37
DX: Z98.84 Bariatric surgery status (principal)
CPT/HCPCS: 82607

== ENCOUNTER → 2018-04-30 | Outpatient (CLI) | payer OTHER ==
[~2018-04-30] MED LIST changes: +BACT800T5 PO; +BUPR10TASR PO; +CALC250T PO; +FLINCHW5 PO; -GABA-282 PO; +GABA-843 PO; +NORCOTAB PO; -PANT40TA2 PO; +PANT40TA3 PO; +PERC5TAB12 PO; +PROAAER10 INH; +TIZA4CAP PO; -TIZA4CAP3 PO; +VITA250L PO
[2018-04-30 10:26] LABS: BASO % 0.6 % (0.0-1.0); EOS # 0.2 10^3/uL (0.0-0.50); EOS % 4.9 % (0.0-3.0); HEMATOCRIT 38.3 % (42.0-52.0); HEMOGLOBIN 12.8 g/dl (13.5-17.5); LYMPH # 1.3 10^3/uL (1.5-4.5); LYMPH % 37.6 % (24.0-44.0); MEAN CORPUSCULAR HEMOGLOBIN 30.2 pg (27.0-33.0); MEAN CORPUSCULAR HGB CONC 33.7 g/dl (32.0-36.5); MEAN CORPUSCULAR VOLUME 89.6 fl (80.0-96.0); MONO # 0.3 10^3/uL (0.0-0.8); NEUTROPHILS # 1.7 10^3/uL (1.8-7.7); NEUTROPHILS % 47.6 % (36.0-66.0); RED BLOOD COUNT 4.24 10^6/uL (4.30-6.10); WHITE BLOOD COUNT 3.5 10^3/uL (4.0-10.0)
[2018-04-30 10:32] LABS: PLATELET COUNT, AUTOMATED 94 10^3/uL (150-450)
[2018-04-30 10:58] LABS: HEMOGLOBIN A1c 4.5 %
[2018-04-30 11:02] LABS: ALBUMIN 3.4 GM/DL (3.2-5.2); ALT/SGPT 31 U/L (12-78); BILIRUBIN,TOTAL 1.1 MG/DL (0.2-1.0); BLOOD UREA NITROGEN 11 MG/DL (7-18); CALCIUM LEVEL 8.5 MG/DL (8.5-10.1); CARBON DIOXIDE LEVEL 30 MEQ/L (21-32); CHLORIDE LEVEL 110 MEQ/L (98-107); CREATININE FOR GFR 0.84 MG/DL (0.70-1.30); FERRITIN 110 NG/ML (26-388); GLOMERULAR FILTRATION RATE > 60.0 (>56); GLUCOSE, FASTING 78 MG/DL (70-100); IRON (FE) 138 UG/DL (65-175); MAGNESIUM LEVEL 2.1 MG/DL (1.8-2.4); PERCENT SATURATION 62.4 % (19.7-50.0); PHOSPHORUS LEVEL 2.7 MG/DL (2.5-4.9); POTASSIUM SERUM 3.7 MEQ/L (3.5-5.1); SODIUM LEVEL 145 MEQ/L (136-145); TOTAL IRON BINDING CAPACITY 221 UG/DL (250-450); TOTAL PROTEIN 5.8 GM/DL (6.4-8.2)
[2018-04-30 11:10] LABS: VITAMIN B12 LEVEL 302 PG/ML (247-911)
== END ==
LOC: M LAB 08:39
PROVIDERS: ATTEND Surgery
DX: K91.2 Postsurgical malabsorption, not elsewhere classified (principal); Z98.84 Bariatric surgery status; E55.9 Vitamin D deficiency, unspecified

== ENCOUNTER 2018-06-01 09:28 | Emergency (ER) | payer OTHER ==
[~2018-06-01] VITALS: Ht 180.3 cm; Wt 122.1 kg
[2018-06-01 09:28] VITALS: BP 148/74
[~2018-06-01 09:28] MED LIST changes: -ASPI1TAB PO; +ASPI81TA26 PO; +HYDR-3715 PO; -NORCOTAB PO
[2018-06-01] MEDS ORDERED: OXYC1TAB15 (09:36)
[2018-06-01] MEDS ORDERED: PROZ10CA7 PO (09:36)
[2018-06-01] MEDS ORDERED: KETOROLAC 60 MG/2 ML VIAL (J1885) IM ONE (10:00)
[2018-06-01] MEDS ORDERED: ROBA500T PO (10:28)
[2018-06-01] MEDS ORDERED: NAPR-837 PO (10:28)
--- NOTE | 2018-06-01 10:54 | REP ---
LUMBAR SPINE, FIVE VIEWS: HISTORY: Trauma. COMPARISON: 09/17/2015 There is no acute fracture or subluxation. The L3-4 intervertebral disc is decreased in height consistent with disc degeneration. Osteophytes are present on L2 through L4. There is narrowing of the L5-S1 facet joints. IMPRESSION: Degenerative change as described above. Electronically Signed by Jose Antonio Norwood MD 06/01/2018 10:56 A
--- NOTE | 2018-06-01 10:55 | REP ---
AP PELVIS, ONE VIEW: HISTORY: Trauma. There is no acute fracture or dislocation. There is minimal narrowing of the joint spaces with associated sclerosis. IMPRESSION: There is no acute fracture or dislocation. Electronically Signed by Jose Antonio Norwood MD 06/01/2018 10:59 A
== END 2018-06-01 10:35 | disposition home or self-care (01) ==
LOC: M ED 09:28
DX: G89.29 Other chronic pain (principal); M54.41 Lumbago with sciatica, right side; M54.42 Lumbago with sciatica, left side; J45.909 Unspecified asthma, uncomplicated; E11.9 Type 2 diabetes mellitus without complications; I10 Essential (primary) hypertension; E78.9 Disorder of lipoprotein metabolism, unspecified; F33.9 Major depressive disorder, recurrent, unspecified; N40.0 Benign prostatic hyperplasia without lower urinary tract symptoms; Z98.84 Bariatric surgery status
CPT/HCPCS: 72110; 72170; 96372; 99283; J1885

== ENCOUNTER → 2018-06-21 | Outpatient (CLI) | payer OTHER ==
[~2018-06-21] MED LIST changes: +NAPR-837 PO; +OXYC1TAB15; +PROZ10CA7 PO; +ROBA500T PO
[2018-06-21 10:55] LABS: HEMOGLOBIN A1c 4.6 %
[2018-06-21 11:32] LABS: TOTAL 25(OH) VITAMIN D 22.6 NG/ML (30.0-100.0)
== END ==
LOC: M LAB 09:21
PROVIDERS: ATTEND Student in an Organized Health Care Education/Training Program
DX: Z98.84 Bariatric surgery status (principal)

== ENCOUNTER → 2019-04-21 | Outpatient (REF) | payer MEDICARE ==
[~2019-04-21] MED LIST changes: +METF-791 PO; -METF500T4 PO
== END ==
LOC: M SFHCPLAZ 16:06
PROVIDERS: ATTEND Family Medicine
DX: Z98.84 Bariatric surgery status (principal); Z53.8 Procedure and treatment not carried out for other reasons

== ENCOUNTER → 2019-04-22 | Outpatient (CLI) | payer MEDICARE ==
[2019-04-22 15:33] LABS: HEMATOCRIT 39.1 % (42.0-52.0); HEMOGLOBIN 13.8 g/dl (13.5-17.5); MEAN CORPUSCULAR HEMOGLOBIN 33.4 pg (27.0-33.0); MEAN CORPUSCULAR HGB CONC 35.3 g/dl (32.0-36.5); MEAN CORPUSCULAR VOLUME 94.7 fl (80.0-96.0); RED BLOOD COUNT 4.13 10^6/uL (4.30-6.10); WHITE BLOOD COUNT 4.5 10^3/uL (4.0-10.0)
[2019-04-22 15:34] LABS: PLATELET COUNT, AUTOMATED 97 10^3/uL (150-450)
[2019-04-22 15:59] LABS: BLOOD UREA NITROGEN 11 MG/DL (7-18); CALCIUM LEVEL 8.7 MG/DL (8.5-10.1); CARBON DIOXIDE LEVEL 32 MEQ/L (21-32); CHLORIDE LEVEL 108 MEQ/L (98-107); CREATININE FOR GFR 0.95 MG/DL (0.70-1.30); GLOMERULAR FILTRATION RATE > 60.0 (>56); GLUCOSE, FASTING 57 MG/DL (70-100); IRON (FE) 85 UG/DL (65-175); PHOSPHORUS LEVEL 3.1 MG/DL (2.5-4.9); POTASSIUM SERUM 3.8 MEQ/L (3.5-5.1); SODIUM LEVEL 142 MEQ/L (136-145)
[2019-04-22 16:08] LABS: FOLATE 10.8 NG/ML; VITAMIN B12 LEVEL 249 PG/ML
== END ==
LOC: M LAB 14:21
PROVIDERS: ATTEND Student in an Organized Health Care Education/Training Program
DX: Z98.84 Bariatric surgery status (principal); Z79.899 Other long term (current) drug therapy

== ENCOUNTER → 2020-04-27 | Outpatient (REF) | payer OTHER ==
[~2020-04-27] MED LIST changes: +CYCL-707 PO; -CYCL10TA PO; +GABA-282 PO; -GABA-843 PO; +HYDR-3490 PO; -HYDR25TAB PO; -LACT10SO29 PO; +LACT20EL PO; -LISI-542 PO; +LISI-898 PO; -METF-791 PO; +METF-838 PO; +PANT40TA29 PO; -PANT40TA3 PO
== END ==
LOC: M SFHCPLAZ 10:54
PROVIDERS: ATTEND Family Medicine
DX: Z98.84 Bariatric surgery status (principal); Z79.899 Other long term (current) drug therapy

== ENCOUNTER → 2020-04-28 | Outpatient (REF) | payer OTHER ==
[2020-04-28 12:03] LABS: HEMATOCRIT 42.2 % (42.0-52.0)
[2020-04-28 12:04] LABS: BASO % 0.6 % (0.0-1.0); EOS # 0.2 10^3/uL (0.0-0.5); EOS % 4.7 % (0.0-3.0); HEMATOCRIT 42.6 % (42.0-52.0); HEMOGLOBIN 14.2 g/dl (13.5-17.5); LYMPH # 0.8 10^3/uL (1.5-5.0); LYMPH % 23.8 % (24.0-44.0); MEAN CORPUSCULAR HEMOGLOBIN 29.9 pg (27.0-33.0); MEAN CORPUSCULAR HGB CONC 33.3 g/dl (32.0-36.5); MEAN CORPUSCULAR VOLUME 89.7 fl (80.0-96.0); MONO # 0.3 10^3/uL (0.0-0.8); MONO % 9.4 % (2.0-8.0); NEUTROPHILS % 61.2 % (36.0-66.0); RED BLOOD COUNT 4.75 10^6/uL (4.30-6.10); WHITE BLOOD COUNT 3.2 10^3/uL (4.0-10.0)
[2020-04-28 12:24] LABS: PLATELET COUNT, AUTOMATED 84 10^3/uL (150-450)
[2020-04-28 12:25] LABS: HEMOGLOBIN A1c 4.8 %
[2020-04-28 12:44] LABS: BLOOD UREA NITROGEN 10 MG/DL (7-18); CARBON DIOXIDE LEVEL 30 MEQ/L (21-32); CHLORIDE LEVEL 109 MEQ/L (98-107); CREATININE FOR GFR 0.98 MG/DL (0.70-1.30); FREE T4 1.06 NG/DL (0.76-1.46); GLOMERULAR FILTRATION RATE > 60.0 (>56); GLUCOSE, FASTING 152 MG/DL (70-100); IRON (FE) 63 UG/DL (65-175); PHOSPHORUS LEVEL 2.7 MG/DL (2.5-4.9); SODIUM LEVEL 142 MEQ/L (136-145); TOTAL 25(OH) VITAMIN D 14.9 NG/ML (30.0-100.0)
[2020-04-28 12:45] LABS: VITAMIN B12 LEVEL 287 PG/ML (247-911)
== END ==
LOC: M SFHCPLAZ 09:21
PROVIDERS: ATTEND Family Medicine
DX: Z98.84 Bariatric surgery status (principal); D50.9 Iron deficiency anemia, unspecified; E07.9 Disorder of thyroid, unspecified

== ENCOUNTER → 2020-07-20 | Outpatient (CLI) | payer OTHER ==
--- NOTE | 2020-07-22 13:05 | SLEEPCENT ---
DATE: 07/20/2020 ORDERED BY: Dr. Méndez Nocturnal polysomnography was performed for evaluation of sleep physiology. There was 8 hours and 10 minutes of data reviewed. There was 409.5 minutes of sleep identified. Sleep latency was prolonged at 48 minutes. REM latency was mildly prolonged at 102 minutes. Sleep architecture shows some fragmentation. Overall sleep efficiency was 84.5%. There was reduce in REM time. The electrocardiogram shows a sinus rhythm with an average heart rate of 58 beats per minute. Rate ranged 50-75. EEG shows reasonably normal waveforms for wake and sleep. There were 34 respiratory events identified of 10 seconds in duration or greater for an apnea-hypopnea index of 5. The events were primarily obstructive, not exclusive to sleep stage nor to body posture. Arousals from respiratory events occurred 1.6 times per hour. Oxygen desaturations below 90% were not seen. There was some activity appreciated in the limb leads. No trains of events. Limb movement arousal index was 7.2. Snoring was noted over the entire study. IMPRESSION: Obstructive sleep apnea syndrome (G47.33). Apnea-hypopnea index 5. RECOMMENDATION: given the patient's persistence of symptoms, referral back to the sleep disorder center for pressure therapy is recommended. In the interim, alcohol and sedative avoidance should be practiced and caution exercised during the operation of motor vehicles.
== END ==
LOC: M SLEEP 20:00
PROVIDERS: ATTEND Internal Medicine Pulmonary Disease
DX: G47.33 Obstructive sleep apnea (adult) (pediatric) (principal)

== ENCOUNTER 2020-11-08 20:18 | Emergency (ER) | payer OTHER ==
[~2020-11-08] VITALS: Ht 154.9 cm; Wt 196.0 kg
[~2020-11-08 20:18] MED LIST changes: -OXYC1TAB15; +OXYC7.5T3; -RIZA5TAB PO; +RIZA5TAB2 PO
[2020-11-08] MEDS ORDERED: TRAZ-257 (20:39)
[2020-11-09 02:06] LABS: BASO % 0.5 % (0.0-1.0); EOS # 0.1 10^3/uL (0.0-0.5); EOS % 2.4 % (0.0-3.0); HEMATOCRIT 39.9 % (42.0-52.0); HEMOGLOBIN 13.4 g/dl (13.5-17.5); LYMPH # 0.8 10^3/uL (1.5-5.0); LYMPH % 22.8 % (24.0-44.0); MEAN CORPUSCULAR HEMOGLOBIN 29.5 pg (27.0-33.0); MEAN CORPUSCULAR HGB CONC 33.6 g/dl (32.0-36.5); MEAN CORPUSCULAR VOLUME 87.9 fl (80.0-96.0); MONO # 0.4 10^3/uL (0.0-0.8); MONO % 11.7 % (2.0-8.0); NEUTROPHILS # 2.3 10^3/uL (1.5-8.5); NEUTROPHILS % 62.3 % (36.0-66.0); RED BLOOD COUNT 4.54 10^6/uL (4.30-6.10); WHITE BLOOD COUNT 3.7 10^3/uL (4.0-10.0)
[2020-11-09] MEDS ORDERED: BOOSTRIX/ADACEL VACCINE (DIPHTH/PERTUSS/ACELL/TETANUS) 0.5ML SYR IM ONE (02:15)
[2020-11-09 02:21] LABS: PLATELET COUNT, AUTOMATED 83 10^3/uL (150-450)
[2020-11-09 02:23] LABS: ERYTHROCYTE SEDIMENTATION RATE 10 mm/hr (0-20)
[2020-11-09 02:36] LABS: ALBUMIN 3.4 GM/DL (3.2-5.2); ALT/SGPT 29 U/L (12-78); BLOOD UREA NITROGEN 11 MG/DL (7-18); C REACTIVE PROTEIN QUANTITATIV 0.45 MG/DL (0.00-0.30); CALCIUM LEVEL 8.7 MG/DL (8.5-10.1); CARBON DIOXIDE LEVEL 28 MEQ/L (21-32); CHLORIDE LEVEL 109 MEQ/L (98-107); CREATININE FOR GFR 1.16 MG/DL (0.70-1.30); GLOMERULAR FILTRATION RATE > 60.0 (>56); GLUCOSE, FASTING 83 MG/DL (70-100); POTASSIUM SERUM 4.1 MEQ/L (3.5-5.1); SODIUM LEVEL 141 MEQ/L (136-145); TOTAL PROTEIN 6.4 GM/DL (6.4-8.2)
[2020-11-09] MEDS ORDERED: AMPICILLIN SOD/SULBACTAM SOD 3 GM in D5W MINI-BAG PLUS 100 ML IV ONE (02:45)
--- NOTE | 2020-11-09 03:45 | REPVR ---
PROCEDURE INFORMATION: Exam: XR Left Hand Exam date and time: 11/09/2020 1:25 AM Age: 54 years old Clinical indication: Pain; Hand; Left; Additional info: Dog bite, unable to bend left thumb TECHNIQUE: Imaging protocol: XR Left hand. Views: 3 or more views. COMPARISON: No relevant prior studies available. FINDINGS: Bones/joints: Mild degenerative joint disease. No acute fracture or dislocation. Soft tissues: Normal. IMPRESSION: No acute osseous abnormality. Electronically signed by: Bib Weston On 11/09/2020 03:44:44 AM
[2020-11-09 06:36] VITALS: BP 142/88
== END 2020-11-09 06:39 | disposition short-term general hospital (02) ==
LOC: M ED 20:18
DX: M65.88 Other synovitis and tenosynovitis, other site (principal); S61.452A Open bite of left hand, initial encounter; W54.0XXA Bitten by dog, initial encounter; Y92.018 Other place in single-family (private) house as the place of occurrence of the external cause; D69.6 Thrombocytopenia, unspecified; Z98.84 Bariatric surgery status

== ENCOUNTER 2023-07-28 09:47 | Emergency (ER) | payer MEDICARE, OTHER ==
[~2023-07-28] VITALS: Ht 180.3 cm; Wt 151.0 kg
[~2023-07-28 09:47] MED LIST changes: -CITA40TA4 PO; +CITA40TA7 PO; -LISI-898 PO; +LISI5TAB11 PO; +TRAZ-257
[2023-07-28] MEDS: KETOROLAC 60MG 2ML VIAL IM ONE (12:16)
[2023-07-28] MEDS: LIDOCAINE 5% (LIDODERM) PATCH TD ONE (12:16)
[2023-07-28] MEDS ORDERED: METH-1165 PO (13:18)
[2023-07-28] MEDS ORDERED: MEDR4PAK PO (13:18)
[2023-07-28] MEDS ORDERED: ANEC4CRE3 TOP (13:18)
[2023-07-28] MEDS: diazePAM 10 MG TAB PO ONE (13:30)
[2023-07-28 13:35] VITALS: BP 134/83; TEMP 97.1; O2SAT 96
== END 2023-07-28 13:38 | disposition home or self-care (01) ==
LOC: M ED 09:47
DX: M54.50 Low back pain, unspecified (principal); I10 Essential (primary) hypertension; E78.5 Hyperlipidemia, unspecified; K21.9 Gastro-esophageal reflux disease without esophagitis; Z79.899 Other long term (current) drug therapy
CPT/HCPCS: 72110; 96372; 99283; J1885

== ENCOUNTER → 2023-08-14 | Outpatient (CLI) | payer MEDICARE ==
[~2023-08-14] MED LIST changes: +ANEC4CRE3 TOP; +MEDR4PAK PO; +METH-1165 PO
[2023-08-14 18:23] LABS: BASO % 0.7 % (0.0-1.0); EOS # 0.2 10^3/uL (0.0-0.5); EOS % 3.8 % (0.0-3.0); HEMATOCRIT 39.5 % (42.0-52.0); HEMOGLOBIN 12.6 g/dl (13.5-17.5); LYMPH % 17.8 % (24.0-44.0); MEAN CORPUSCULAR HEMOGLOBIN 27.3 pg (27.0-33.0); MEAN CORPUSCULAR HGB CONC 31.9 g/dl (32.0-36.5); MEAN CORPUSCULAR VOLUME 85.7 fl (80.0-96.0); MONO # 0.8 10^3/uL (0.0-0.8); MONO % 13.1 % (2.0-8.0); NEUTROPHILS # 3.7 10^3/uL (1.5-8.5); NEUTROPHILS % 64.4 % (36.0-66.0); PLATELET COUNT, AUTOMATED 109 10^3/uL (150-450); RED BLOOD COUNT 4.61 10^6/uL (4.30-6.10); WHITE BLOOD COUNT 5.8 10^3/uL (4.0-10.0)
[2023-08-14 18:51] LABS: TOTAL IRON BINDING CAPACITY 331 UG/DL (250-425)
[2023-08-14 18:52] LABS: ALBUMIN 3.4 G/DL (3.2-5.2); ALKALINE PHOSPHATASE 131 U/L (46-116); ALT/SGPT 36 U/L (7.0-40); AST/SGOT 49 U/L (<34); BILIRUBIN,TOTAL 0.9 MG/DL (0.3-1.2); BLOOD UREA NITROGEN 14 MG/DL (9-23); CALCIUM LEVEL 9.1 MG/DL (8.5-10.1); CARBON DIOXIDE LEVEL 26 MMOL/L (20-31); CHLORIDE LEVEL 112 MMOL/L (98-107); CHOLESTEROL LEVEL 203 MG/DL (<200); CHOLESTEROL RISK RATIO 5.41 (<5); GLOMERULAR FILTRATION RATE > 60.0 (>56); GLUCOSE, FASTING 56 MG/DL (60-100); HDL CHOLESTEROL 37.5 MG/DL (>40); IRON (FE) 86 UG/DL (65-175); LDL CHOLESTEROL 138.1 MG/DL (<100); NON-HDL-C 165.5 MG/DL; POTASSIUM SERUM 4.1 MMOL/L (3.5-5.1); SODIUM LEVEL 144 MMOL/L (136-145); TOTAL PROTEIN 6.2 G/DL (5.7-8.2); TRIGLYCERIDES LEVEL 137 MG/DL (<150)
== END ==
LOC: M PLALAB 15:00
PROVIDERS: ATTEND Student in an Organized Health Care Education/Training Program
DX: M54.50 Low back pain, unspecified (principal); M62.830 Muscle spasm of back; Z79.899 Other long term (current) drug therapy

== ENCOUNTER 2023-10-12 11:16 | Emergency (ER) | payer MEDICARE ==
[~2023-10-12] VITALS: Ht 180.3 cm; Wt 151.6 kg
[2023-10-12 11:17] VITALS: TEMP 98.3
[2023-10-12 13:13] VITALS: BP 138/82; O2SAT 97
== END 2023-10-12 13:14 | disposition home or self-care (01) ==
LOC: M ED 11:16
DX: S82.841A Displaced bimalleolar fracture of right lower leg, initial encounter for closed fracture (principal); Y92.019 Unspecified place in single-family (private) house as the place of occurrence of the external cause; Y93.9 Activity, unspecified; Y99.9 Unspecified external cause status; I10 Essential (primary) hypertension; K21.9 Gastro-esophageal reflux disease without esophagitis; G47.33 Obstructive sleep apnea (adult) (pediatric); Z79.899 Other long term (current) drug therapy

== ENCOUNTER → 2023-10-15 | Outpatient (CLI) | payer MEDICARE | LOC: M SOG 10:41 | PROVIDERS: ATTEND Orthopaedic Surgery | DX: M25.571 Pain in right ankle and joints of right foot (principal); S82.831A Other fracture of upper and lower end of right fibula, initial encounter for closed fracture; X58.XXXA Exposure to other specified factors, initial encounter; Y92.9 Unspecified place or not applicable ==

== ENCOUNTER → 2023-10-22 | Outpatient (CLI) | payer MEDICARE | LOC: M SOG 07:24 | PROVIDERS: ATTEND Orthopaedic Surgery | DX: S82.64XA Nondisplaced fracture of lateral malleolus of right fibula, initial encounter for closed fracture (principal); Z53.9 Procedure and treatment not carried out, unspecified reason ==

== ENCOUNTER → 2023-10-26 | Outpatient (CLI) | payer MEDICARE | LOC: M SOG 07:22 | PROVIDERS: ATTEND Orthopaedic Surgery | DX: S82.64XD Nondisplaced fracture of lateral malleolus of right fibula, subsequent encounter for closed fracture with routine healing (principal) ==

== ENCOUNTER → 2023-11-14 | Outpatient (CLI) | payer MEDICARE ==
[~2023-11-14] MED LIST changes: +GABA-1172 PO; -GABA-282 PO
== END ==
LOC: M SOG 10:17
PROVIDERS: ATTEND Orthopaedic Surgery
DX: S82.61XD Displaced fracture of lateral malleolus of right fibula, subsequent encounter for closed fracture with routine healing (principal)

== ENCOUNTER → 2023-12-06 | Outpatient (CLI) | payer MEDICARE ==
[2023-12-06 12:39] LABS: BASO % 0.8 % (0.0-1.0); EOS # 0.2 10^3/uL (0.0-0.5); EOS % 5.5 % (0.0-3.0); HEMOGLOBIN 12.5 g/dl (13.5-17.5); LYMPH # 0.9 10^3/uL (1.5-5.0); LYMPH % 22.8 % (24.0-44.0); MEAN CORPUSCULAR HEMOGLOBIN 27.4 pg (27.0-33.0); MEAN CORPUSCULAR HGB CONC 32.1 g/dl (32.0-36.5); MEAN CORPUSCULAR VOLUME 85.3 fl (80.0-96.0); MONO # 0.4 10^3/uL (0.0-0.8); MONO % 11.5 % (2.0-8.0); NEUTROPHILS # 2.3 10^3/uL (1.5-8.5); NEUTROPHILS % 59.1 % (36.0-66.0); PLATELET COUNT, AUTOMATED 112 10^3/uL (150-450); RED BLOOD COUNT 4.57 10^6/uL (4.30-6.10); WHITE BLOOD COUNT 3.8 10^3/uL (4.0-10.0)
[2023-12-06 12:41] LABS: ALBUMIN 3.2 G/DL (3.2-5.2); ALKALINE PHOSPHATASE 138 U/L (40-129); ALT/SGPT 28 U/L (7.0-40); AST/SGOT 44 U/L (<34); BILIRUBIN,TOTAL 0.8 MG/DL (0.3-1.2); BLOOD UREA NITROGEN 11 MG/DL (9-23); CALCIUM LEVEL 9.3 MG/DL (8.5-10.1); CARBON DIOXIDE LEVEL 28 MMOL/L (20-31); CHLORIDE LEVEL 113 MMOL/L (98-107); CHOLESTEROL LEVEL 205 MG/DL (<200); CHOLESTEROL RISK RATIO 5.72 (<5); CREATININE FOR GFR 1.07 MG/DL (0.70-1.30); GLOMERULAR FILTRATION RATE > 60.0 (>56); GLUCOSE, FASTING 75 MG/DL (60-100); HDL CHOLESTEROL 35.8 MG/DL (>40); NON-HDL-C 169.2 MG/DL; SODIUM LEVEL 143 MMOL/L (136-145); TOTAL PROTEIN 6.4 G/DL (5.7-8.2); TRIGLYCERIDES LEVEL 136 MG/DL (<150)
== END ==
LOC: M PLALAB 10:38 → M PLAIMG 10:38
PROVIDERS: ATTEND Student in an Organized Health Care Education/Training Program
DX: I10 Essential (primary) hypertension (principal); E66.9 Obesity, unspecified

== ENCOUNTER → 2023-12-17 | Outpatient (CLI) | payer MEDICARE | LOC: M SOG 07:52 | PROVIDERS: ATTEND Orthopaedic Surgery | DX: S82.64XD Nondisplaced fracture of lateral malleolus of right fibula, subsequent encounter for closed fracture with routine healing (principal) ==

== ENCOUNTER 2024-09-04 09:39 | Day surgery (SDC) | payer MEDICARE ==
[~2024-09-04] VITALS: Ht 180.3 cm; Wt 148.5 kg
[~2024-09-04 09:39] MED LIST changes: -AMBI5TAB PO; +LIDOCAINE 2% 100 MG/5 ML SDV (FOR ANES.) As Ordered ONE; +PROZ10CA11 PO; -PROZ10CA7 PO; -TRAZ-257; +TRAZ-257 PO; +ZOLP-532 PO
[2024-09-04 11:23] VITALS: TEMP 97.3
[2024-09-04 11:40] VITALS: BP 119/58; O2SAT 98
== END 2024-09-04 12:11 | disposition home or self-care (01) ==
LOC: M SDC 09:39
PROVIDERS: ATTEND Surgery
DX: Z12.11 Encounter for screening for malignant neoplasm of colon (principal); K57.30 Diverticulosis of large intestine without perforation or abscess without bleeding; Z80.0 Family history of malignant neoplasm of digestive organs; G47.30 Sleep apnea, unspecified; J45.909 Unspecified asthma, uncomplicated; N40.0 Benign prostatic hyperplasia without lower urinary tract symptoms; Z98.84 Bariatric surgery status

== ENCOUNTER → 2024-12-16 | Outpatient (CLI) | payer MEDICARE ==
[~2024-12-16] MED LIST changes: -LIDOCAINE 2% 100 MG/5 ML SDV (FOR ANES.) As Ordered ONE
[2024-12-16 10:28] LABS: BASO # 0.0 10^3/uL (0.0-0.2); BASO % 0.6 % (0.0-1.0); EOS # 0.2 10^3/uL (0.0-0.5); EOS % 4.3 % (0.0-3.0); LYMPH # 1.0 10^3/uL (1.5-5.0); LYMPH % 28.2 % (24.0-44.0); MONO # 0.4 10^3/uL (0.0-0.8); MONO % 11.8 % (2.0-8.0); NEUTROPHILS # 1.9 10^3/uL (1.5-8.5); NEUTROPHILS % 54.8 % (36.0-66.0); PLATELET COUNT, AUTOMATED 112 10^3/uL (150-450)
[2024-12-16 10:36] LABS: IRON (FE) 34.0 UG/DL (65-175); LDH LACTATE DEHYDROGENASE 242.0 U/L (120-246)
[2024-12-16 10:37] LABS: ALT/SGPT 30.0 U/L (7.0-40); AST/SGOT 56.0 U/L (<34); CALCIUM LEVEL 8.3 MG/DL (8.3-10.6); CARBON DIOXIDE LEVEL 27.0 MMOL/L (20-31); CHLORIDE LEVEL 108.0 MMOL/L (98-107); CREATININE FOR GFR 1.0 MG/DL (0.70-1.30); GLOMERULAR FILTRATION RATE 86.2 (>49); POTASSIUM SERUM 3.7 MMOL/L (3.5-5.1); SODIUM LEVEL 143.0 MMOL/L (136-145)
[2024-12-16 10:39] LABS: VITAMIN B12 LEVEL 243.0 PG/ML (211-911)
[2024-12-16 10:57] LABS: INR 1.13
[2024-12-16 11:53] LABS: ESTIMATED AVERAGE GLUCOSE 103.0 MG/DL (60-110)
== END ==
LOC: M PLALAB 08:38
PROVIDERS: ATTEND Student in an Organized Health Care Education/Training Program
DX: Z00.00 Encounter for general adult medical examination without abnormal findings (principal); D61.818 Other pancytopenia; E11.9 Type 2 diabetes mellitus without complications

== ENCOUNTER → 2024-12-30 | Outpatient (REF) | payer MEDICARE ==
[2024-12-30 11:37] LABS: ALT/SGPT 29 U/L (7.0-40); AST/SGOT 52 U/L (<34); CALCIUM LEVEL 8.5 MG/DL (8.3-10.6); CARBON DIOXIDE LEVEL 26 MMOL/L (20-31); CHLORIDE LEVEL 110 MMOL/L (98-107); CREATININE FOR GFR 0.92 MG/DL (0.70-1.30); GLOMERULAR FILTRATION RATE > 90.0 (>49); POTASSIUM SERUM 3.9 MMOL/L (3.5-5.1); PSA SCREENING 1.24 NG/ML (< 4.00); SODIUM LEVEL 145 MMOL/L (136-145)
== END ==
LOC: M PLALAB 10:17
PROVIDERS: ATTEND Student in an Organized Health Care Education/Training Program
DX: Z00.00 Encounter for general adult medical examination without abnormal findings (principal); E78.5 Hyperlipidemia, unspecified; Z12.5 Encounter for screening for malignant neoplasm of prostate
CPT/HCPCS: 80053; G0103

== ENCOUNTER → 2025-01-20 | Outpatient (CLI) | payer MEDICARE | LOC: M SOG 07:34 | PROVIDERS: ATTEND Orthopaedic Surgery | DX: M25.532 Pain in left wrist (principal); M25.531 Pain in right wrist; Z53.9 Procedure and treatment not carried out, unspecified reason ==